=== PATIENT | female | born 1975 | race Caucasian/White ===

== ENCOUNTER 2017-03-26 07:44 | Emergency (ER) | payer SELFPAY ==
[~2017-03-26] VITALS: Ht 154.9 cm; Wt 65.0 kg
[~2017-03-26 07:44] MED LIST: DICY1TAB26 PO; LORTA5 PO; PRED20 PO; VENTAER INH; ZOFR4TAB3 SL
[2017-03-26 07:46] VITALS: BP 158/90; PULSE 96; RESP 14; TEMP 98.2; O2SAT 99
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
[2017-03-26] MEDS ORDERED: METH10CO3 PO (08:12)
[2017-03-26] MEDS ORDERED: METHOCARBAMOL 500 MG TAB PO ONE (08:15)
[2017-03-26] MEDS ORDERED: ACETAMINOPHEN 325 MG TAB PO ONE (08:15)
[2017-03-26] MEDS ORDERED: ROBA500T PO (08:16)
== END 2017-03-26 08:49 | disposition home or self-care (01) ==
LOC: NEPD 07:44
DX: S39.012A Strain of muscle, fascia and tendon of lower back, initial encounter (principal); S49.91XA Unspecified injury of right shoulder and upper arm, initial encounter; S00.81XA Abrasion of other part of head, initial encounter; V17.4XXA Pedal cycle driver injured in collision with fixed or stationary object in traffic accident, initial encounter; Y93.55 Activity, bike riding
CPT/HCPCS: 99283

== ENCOUNTER 2017-08-05 14:08 | Emergency (ER) | payer SELFPAY ==
[~2017-08-05] VITALS: Ht 154.9 cm; Wt 68.0 kg
[~2017-08-05 14:08] MED LIST changes: -DICY1TAB26 PO; -LORTA5 PO; +METH10CO3 PO; -PRED20 PO; +ROBA500T PO; -VENTAER INH; -ZOFR4TAB3 SL
[2017-08-05 14:30] VITALS: BP 131/85; PULSE 94; RESP 20; TEMP 99.2; O2SAT 98
[2017-08-05 17:01] LABS: BACTERIA, URINE MOD /hpf; BILIRUBIN, URINE NEG (NEG); BLOOD, URINE TRACE (NEG); GLUCOSE,URINE NEG (NEG); HYALINE CAST, URINE 2 /lpf (RARE); KETONE, URINE NEG (NEG); MUCUS URINE FEW /lpf (OCC); NITRITE,URINE NEG (NEG); PH, URINE 5.5 (5.0-8.5); SQUAMOUS EPITHELIAL CELL URINE 60 /hpf (0-5); TRICHOMONAS, URINE RARE; URINE COLOR YELLOW (YELLW/STRAW); URINE LEUKOCYTE ESTERASE LARGE (NEG); WHITE BLOOD CELL CLUMPS RARE
[2017-08-05] MEDS ORDERED: CEPH-460 PO (17:11)
[2017-08-05] MEDS ORDERED: IBUP1TAB7 PO (17:11)
[2017-08-05] MEDS ORDERED: LIDOCAINE HCL 1% 50 ML VIAL INFIL ONE (17:15)
[2017-08-05] MEDS ORDERED: IBUPROFEN 800 MG TAB PO ONE (17:15)
--- NOTE | 2017-08-05 17:15 | PD ---
HPI Chief Complaint: Abdominal Pain Time Seen by Provider: 17:04 Travel History International Travel<30 days: No Contact w/Intl Traveler<30days: No Traveled to known affect area: No History of Present Illness HPI 42-year-old female presents emergency department with 1 month history of lower abdominal discomfort and dysuria. Patient states she is gotten worsening bilateral flank pain in the last week. She denies nausea or vomiting. She has increased cramping and dysuria as well. No vaginal discharge noted. She has low-grade temperature of 99.3. She has allergies to ketorolac, pineapple, tramadol, and peanut butter. PFSH Past Medical History Asthma: No Blood Disorders: No Anxiety: Yes Heart Rhythm Problems: No Cancer: No Cardiovascular Problems: No High Cholesterol: No Chest Pain: Yes Congestive Heart Failure: No COPD: No Cerebrovascular Accident: No Diminished Hearing: No Endocrine: No Genitourinary: No Hypertension: Yes Immune Disorder: No Musculoskeletal: Yes (fell off ladder, injured left side in 2004) Neurologic: No Psychiatric: No Reproductive: No Respiratory: No Immunizations Current: Yes Myocardial Infarction: No Pneumonia: Yes Radiation Therapy: No Renal Failure: Yes Ulcer: No ?: Not LMP: 07/22/17 : 2 Para: 2 Miscarriage: 0 : 0 Tubal Ligation: Yes Past Surgical History Abdominal Surgery: Yes (C SECTION) Section: Yes Gynecologic Surgery: Yes ( X 1, TUBAL LIGATION ) Pacemaker: No Other Surgery: No Social History Alcohol Use: No Tobacco Use: No Substance Use: Yes (MARIJUANA use last month ) Allergies-Medications (Allergen,Severity, Reaction): Coded Allergies: ketorolac (Unverified Allergy, Severe, LIP SWELLING, 03/26/17) tramadol (Unverified Allergy, Severe, NAUSEA, 03/26/17) pineapple (Verified Allergy, Unknown, 03/26/17) Uncoded Allergies: PEANUTBUTTER (Allergy, Severe, 03/26/17) Reported Meds & Prescriptions Reported Meds & Active Scripts Active Ibuprofen 800 Mg Tab 800 Mg PO Q8H PRN Keflex (Cephalexin) 500 Mg Capsule 500 Mg PO Q8H Robaxin (Methocarbamol) 500 Mg Tab 500 Mg PO QID PRN Reported Methadone Intensol Liq (Methadone HCl) 10 Mg/Ml Conc 100 Mg PO DAILY Review of Systems Except as stated in HPI: all other systems reviewed are Neg General / Constitutional: Positive: Chills, No: Fever Eyes: No: Visual changes HENT: No: Headaches Cardiovascular: No: Chest Pain or Discomfort Respiratory: No: Shortness of Breath Gastrointestinal: No: Abdominal Pain Genitourinary: Positive: Urgency, Frequency, Dysuria, Pelvic Pain, Flank Pain, No: Nocturia, Hematuria, Decreased Urinary Output, Oliguria, Discharge, Vaginal Bleeding Musculoskeletal: No: Pain Skin: No Rash Neurologic: No: Weakness Psychiatric: No: Depression Endocrine: No: Polydipsia Hematologic/Lymphatic: No: Easy Bruising Physical Exam Narrative GENERAL: Patient appears in mild distress. SKIN: Warm and dry. Normal color. Normal turgor. No rash. HEAD: Atraumatic. Normocephalic. EYES: Pupils equal and round. No scleral icterus. No injection or drainage. ENT: No nasal bleeding or discharge. Mucous membranes pink and moist. NECK: Trachea midline. Supple nontender. CARDIOVASCULAR: Regular rate and rhythm. RESPIRATORY: No accessory muscle use. Clear to auscultation. Breath sounds equal bilaterally. GASTROINTESTINAL: Abdomen soft, mild to moderate diffuse suprapubic tenderness. Mild bilateral CVA tenderness. Abdomen is nondistended. Hepatic and splenic margins not palpable. MUSCULOSKELETAL: Extremities without clubbing, cyanosis, or edema. No obvious deformities. NEUROLOGICAL: Awake and alert. No obvious cranial nerve deficits. Motor grossly within normal limits. Five out of 5 muscle strength in the arms and legs. Normal speech. PSYCHIATRIC: Appropriate mood and affect; insight and judgment normal. Data Data Last Documented VS Vital Signs Date Time Temp Pulse Resp B/P (MAP) Pulse Ox O2 Delivery O2 Flow Rate FiO2 08/05/17 14:30 99.2 94 20 131/85 (100) 98 Orders Orders Urinalysis - C+S If Indicated (08/05/17 16:09) Ed Urine Pregnancytest Poc (08/05/17 16:09) Urine Culture (08/05/17 16:10) Ceftriaxone Inj (Rocephin Inj) (08/05/17 17:15) Ibuprofen (Motrin) (08/05/17 17:15) Lidocaine 1% Inj (50 Ml) (Xylocaine 1% I (08/05/17 17:15) Labs Laboratory Tests Test 4/29/18 16:10 Urine Color YELLOW Urine Turbidity HAZY Urine pH 5.5 Urine Specific Lindsay 1.023 Urine Protein TRACE mg/dL Urine Glucose (UA) NEG mg/dL Urine Ketones NEG mg/dL Urine Occult Blood TRACE Urine Nitrite NEG Urine Bilirubin NEG Urine Urobilinogen LESS THAN 2.0 MG/DL Urine Leukocyte Esterase LARGE Urine RBC 10 /hpf Urine WBC 61 /hpf Urine WBC Clumps RARE Urine Squamous Epithelial Cells 60 /hpf Urine Bacteria MOD /hpf Urine Hyaline Casts 2 /lpf Urine Mucus FEW /lpf Urine Trichomonas RARE Microscopic Urinalysis Comment CULTURE INDICATED MDM Medical Decision Making Medical Screen Exam Complete: Yes Emergency Medical Condition: Yes Differential Diagnosis Lower abdominal pain. Urinary tract infection. Pyelonephritis. Narrative Course Patient is given injection of Rocephin 1000 mg IM. Patient continued on Keflex 500 mg 3 times daily for 7 days. Patient is given ibuprofen 800 mg p.o. now. Patient given a prescription for ibuprofen 800 mg 3 times daily #30 Patient is to push fluids and follow-up with [facility] as needed. Diagnosis Primary Impression: Urinary tract infection Qualified Codes: N30.01 - Acute cystitis with hematuria Referrals: [facility] Patient Instructions: Dysuria (ED), General Instructions Additional Instructions: Patient is given injection of Rocephin 1000 mg IM. Patient continued on Keflex 500 mg 3 times daily for 7 days. Patient is given ibuprofen 800 mg p.o. now. Patient given a prescription for ibuprofen 800 mg 3 times daily #30 Patient is to push fluids and follow-up with [facility] as needed. Med/Other Pt SpecificInfo: Prescription(s) given Scripts Ibuprofen (Ibuprofen) 800 Mg Tab 800 MG PO Q8H Y for Pain/Inflammation, #30 TAB 0 Refills Prov: Colin Jackson MD 08/05/17 Cephalexin (Keflex) 500 Mg Capsule 500 MG PO Q8H for Infection, #21 CAP 0 Refills Prov: Colin Jackson MD 08/05/17 Disposition: 01 DISCHARGE HOME Condition: Stable Con Black Aug 05, 2017 17:15
== END 2017-08-05 17:51 | disposition home or self-care (01) ==
LOC: NEPD 14:08
DX: N39.0 Urinary tract infection, site not specified (principal); B96.1 Klebsiella pneumoniae [K. pneumoniae] as the cause of diseases classified elsewhere; F41.9 Anxiety disorder, unspecified; I12.9 Hypertensive chronic kidney disease with stage 1 through stage 4 chronic kidney disease, or unspecified chronic kidney disease; N18.9 Chronic kidney disease, unspecified
CPT/HCPCS: 81001; 84703; 87077; 87086; 87186; 96372; 99283; J0696

== ENCOUNTER 2017-08-11 10:11 | Emergency (ER) | payer SELFPAY ==
[~2017-08-11] VITALS: Ht 154.9 cm; Wt 68.0 kg
[~2017-08-11 10:11] MED LIST changes: +CEPH-460 PO; +IBUP1TAB7 PO
[2017-08-11 10:20] VITALS: BP 162/98; PULSE 114; RESP 18; TEMP 98.7; O2SAT 98
[2017-08-11] MEDS ORDERED: SODIUM CHLOR 0.9% 1000 ML INJ 1,000 ML IV SCH (10:35)
[2017-08-11] MEDS ORDERED: ONDANSETRON HCL 4 MG/2 ML VIAL IVP ONE (10:45)
--- NOTE | 2017-08-11 10:49 | PD ---
HPI Chief Complaint: Complaint Time Seen by Provider: 10:25 Travel History International Travel<30 days: No Contact w/Intl Traveler<30days: No Traveled to known affect area: No History of Present Illness HPI Examined in the presence of a female nurse at all times. This is a 42-year-old female who presents for evaluation of abdominal pain. Symptoms started 1 month ago. She reports an aching pain in her lower abdomen and lower back which is worse when walking. She reports increased urinary frequency but denies dysuria. She reports clear vaginal discharge. Sexually active with one long- term partner. She also reports that it appears like her rectum appears out of her anus when she has a bowel movement and she says that she has to "push it back in." This is been ongoing for 1 month. Denies rectal pain. She is also complaining of difficulty sleeping, grieving, secondary to the passing of her daughter in June. She denies any suicidal homicidal ideation however. She denies any hallucinations. Denies any illicit substance use. Denies fevers, chills, nausea, vomiting, diarrhea, constipation. She was seen here in August 05 when she was diagnosed with a urinary tract infection and prescribed Keflex with no improvement in her symptoms. No other complaints. PFSH Past Medical History Asthma: No Blood Disorders: No Anxiety: Yes Heart Rhythm Problems: No Cancer: No Cardiovascular Problems: No High Cholesterol: No Chest Pain: Yes Congestive Heart Failure: No COPD: No Cerebrovascular Accident: No Diminished Hearing: No Endocrine: No Genitourinary: No Hypertension: Yes Immune Disorder: No Musculoskeletal: Yes (fell off ladder, injured left side in 2004) Neurologic: No Psychiatric: No Reproductive: No Respiratory: No Immunizations Current: Yes Myocardial Infarction: No Pneumonia: Yes Radiation Therapy: No Renal Failure: Yes Ulcer: No Tetanus Vaccination: > 5 Years ?: Not LMP: JULY 2017 : 2 Para: 2 Miscarriage: 0 : 0 Tubal Ligation: Yes Past Surgical History Abdominal Surgery: Yes (C SECTION) Section: Yes Gynecologic Surgery: Yes ( X 1, TUBAL LIGATION ) Pacemaker: No Other Surgery: No Social History Alcohol Use: No Tobacco Use: No Substance Use: Yes Allergies-Medications (Allergen,Severity, Reaction): Coded Allergies: ketorolac (Unverified Allergy, Severe, LIP SWELLING, 08/11/17) tramadol (Unverified Allergy, Severe, NAUSEA, 08/11/17) pineapple (Verified Allergy, Unknown, 08/11/17) Uncoded Allergies: PEANUTBUTTER (Allergy, Severe, 03/26/17) Reported Meds & Prescriptions Reported Meds & Active Scripts Active Bactrim DS (Sulfamethoxazole-Trimethoprim) 800-160 Mg Tab 1 Tab PO BID Keflex (Cephalexin) 500 Mg Capsule 500 Mg PO Q8H Review of Systems Except as stated in HPI: all other systems reviewed are Neg Physical Exam Narrative GENERAL: Well-developed well-nourished female no acute distress SKIN: Warm and dry. HEAD: Atraumatic. Normocephalic. EYES: Pupils equal and round. No scleral icterus. No injection or drainage. ENT: No nasal bleeding or discharge. Mucous membranes pink and moist. NECK: Trachea midline. No JVD. CARDIOVASCULAR: Regular rate and rhythm. No murmur appreciated. RESPIRATORY: No accessory muscle use. Clear to auscultation. Breath sounds equal bilaterally. GASTROINTESTINAL: Abdomen soft, tender to palpation in the lower quadrants without guarding. No CVA tenderness. Rectal examination in the presence of a female nurse reveals no evidence of external hemorrhoid or obvious prolapsing rectum. Pelvic examination in the presence of a female nurse: White discharge noted in the vaginal canal. There is no cervical motion tenderness or adnexal tenderness. There is suprapubic tenderness. MUSCULOSKELETAL: No obvious deformities. No clubbing. No cyanosis. No edema. NEUROLOGICAL: Awake and alert. No obvious cranial nerve deficits. Motor grossly within normal limits. Normal speech. PSYCHIATRIC: Appropriate mood and affect; insight and judgment normal. Data Data Last Documented VS Vital Signs Date Time Temp Pulse Resp B/P (MAP) Pulse Ox O2 Delivery O2 Flow Rate FiO2 08/11/17 10:20 98.7 114 18 162/98 (119) 98 Orders Orders Complete Blood Count With Diff (08/11/17 10:35) Comprehensive Metabolic Panel (08/11/17 10:35) Lipase (08/11/17 10:35) Urinalysis - C+S If Indicated (08/11/17 10:35) Ct Abd/Pel W Iv Contrast(Rout) (08/11/17 10:35) Iv Access Insert/Monitor (08/11/17 10:35) Ondansetron Inj (Zofran Inj) (08/11/17 10:45) Sodium Chlor 0.9% 1000 Ml Inj (Ns 1000 M (08/11/17 10:35) Ed Urine Pregnancytest Poc (08/11/17 10:35) Gc And Chlamydia Pcr (08/11/17 10:35) Wet Prep Profile (08/11/17 10:35) Urine Culture (08/11/17 10:50) Iohexol 350 Inj (Omnipaque 350 Inj) (08/11/17 11:30) Azithromycin Powd Pack (Zithromax Powd P (08/11/17 12:30) Ceftriaxone Inj (Rocephin Inj) (08/11/17 12:30) Lidocaine 1% Inj (50 Ml) (Xylocaine 1% I (08/11/17 12:30) Metronidazole (Flagyl) (08/11/17 12:30) Ed Discharge Order (08/11/17 12:16) Labs Laboratory Tests Test 08/11/17 10:50 08/11/17 11:00 White Blood Count 7.4 TH/MM3 Red Blood Count 4.17 MIL/MM3 Hemoglobin 11.8 GM/DL Hematocrit 35.7 % Mean Corpuscular Volume 85.7 FL Mean Corpuscular Hemoglobin 28.3 PG Mean Corpuscular Hemoglobin Concent 33.1 % Red Cell Distribution Width 13.4 % Platelet Count 204 TH/MM3 Mean Platelet Volume 9.0 FL Neutrophils (%) (Auto) 51.8 % Lymphocytes (%) (Auto) 39.6 % Monocytes (%) (Auto) 6.3 % Eosinophils (%) (Auto) 1.7 % Basophils (%) (Auto) 0.6 % Neutrophils # (Auto) 3.8 TH/MM3 Lymphocytes # (Auto) 2.9 TH/MM3 Monocytes # (Auto) 0.5 TH/MM3 Eosinophils # (Auto) 0.1 TH/MM3 Basophils # (Auto) 0.0 TH/MM3 CBC Comment DIFF FINAL Differential Comment Urine Color LIGHT-YELLOW Urine Turbidity HAZY Urine pH 7.0 Urine Specific White 1.019 Urine Protein NEG mg/dL Urine Glucose (UA) NEG mg/dL Urine Ketones NEG mg/dL Urine Occult Blood TRACE Urine Nitrite NEG Urine Bilirubin NEG Urine Urobilinogen LESS THAN 2.0 MG/DL Urine Leukocyte Esterase LARGE Urine RBC 4 /hpf Urine WBC 18 /hpf Urine Squamous Epithelial Cells 33 /hpf Urine Bacteria FEW /hpf Urine Mucus FEW /lpf Urine Trichomonas PRESENT Microscopic Urinalysis Comment CULTURE INDICATED Blood Urea Nitrogen 16 MG/DL Creatinine 1.02 MG/DL Random Glucose 150 MG/DL Total Protein 8.6 GM/DL Albumin 3.5 GM/DL Calcium Level 8.6 MG/DL Alkaline Phosphatase 59 U/L Aspartate Amino Transf (AST/SGOT) 31 U/L Alanine Aminotransferase (ALT/SGPT) 44 U/L Total Bilirubin 0.9 MG/DL Sodium Level 141 MEQ/L Potassium Level 4.0 MEQ/L Chloride Level 107 MEQ/L Carbon Dioxide Level 26.1 MEQ/L Anion Gap 8 MEQ/L Estimat Glomerular Filtration Rate 59 ML/MIN Lipase 195 U/L Clue Cells (Wet Prep) NONE SEEN Vaginal Trichomonas (Wet Prep) NONE SEEN Vaginal Yeast (Wet Prep) NONE SEEN MDM Medical Decision Making Medical Screen Exam Complete: Yes Emergency Medical Condition: Yes Medical Record Reviewed: Yes Differential Diagnosis Cystitis, pyelonephritis, pelvic inflammatory disease, cervicitis, vaginosis, rectal prolapse, internal hemorrhoids Narrative Course Plan is for lab work, pelvic examination, CT abdomen and pelvis, urinalysis. The patient will be given IV fluids and Zofran. CBC, CMP essentially unremarkable. Urinalysis reveals numerous WBCs, some contamination with 33 squamous epithelial cells. Trichomonas is present in her urine sample although not present on wet prep and thus, pending GC results, she will be treated empirically for chlamydia, gonorrhea with azithromycin and Rocephin, trichomonas treated with Flagyl. CT abdomen and pelvis reveals no acute abnormality, there is a 12 mm cystic lesion in the right aspect of the upper vagina likely representing a duct cyst. At this point in time pending urine culture results plan is to discharge her with Bactrim. She will be given an outpatient resource packet in regards to her grieving. Diagnosis Primary Impression: Trichomonas vaginitis Additional Impression: UTI (urinary tract infection) Additional Instructions: Medication as prescribed. Follow-up with primary care physician. Return for any acutely new or worsening symptoms. Med/Other Pt SpecificInfo: Prescription(s) given Scripts Sulfamethoxazole-Trimethoprim (Bactrim DS) 800-160 Mg Tab 1 TAB PO BID for Infection, #14 TAB 0 Refills Prov: Chavo Guillory MD 08/11/17 Disposition: 01 DISCHARGE HOME Condition: Stable Bony Tello August 11, 2017 10:49
[2017-08-11 11:06] LABS: AUTOMATED NEUTROPHIL # 3.8 TH/MM3 (1.8-7.7); BASOPHIL % 0.6 % (0.0-2.0); EOSINOPHIL # 0.1 TH/MM3 (0-0.4); EOSINOPHIL % 1.7 % (0.0-4.0); HEMATOCRIT 35.7 % (35.0-46.0); HEMOGLOBIN 11.8 GM/DL (11.6-15.3); LYMPH % 39.6 % (9.0-44.0); LYMPHOCYTE # 2.9 TH/MM3 (1.0-4.8); MEAN CELL VOLUME 85.7 FL (80.0-100.0); MEAN CORPUSCULAR HEMOGLOBIN 28.3 PG (27.0-34.0); MEAN CORPUSCULAR HGB CONC 33.1 % (32.0-36.0); MONO % 6.3 % (0.0-8.0); MONOCYTE # 0.5 TH/MM3 (0-0.9); NEUT % 51.8 % (16.0-70.0); PLATELET COUNT 204 TH/MM3 (150-450); RED BLOOD COUNT 4.17 MIL/MM3 (4.00-5.30); RED CELL DISTRIBUTION WIDTH 13.4 % (11.6-17.2); WHITE BLOOD COUNT 7.4 TH/MM3 (4.0-11.0)
[2017-08-11] MEDS ORDERED: IOHEXOL 350 MG/ML 10 ML VIAL (for RAD DIAG) IVCONTRAST ONE (11:30)
[2017-08-11 11:33] LABS: ALBUMIN 3.5 GM/DL (3.4-5.0); ALT (GPT) 44 U/L (10-53); AST (GOT) 31 U/L (15-37); BICARBONATE 26.1 MEQ/L (21.0-32.0); BLOOD UREA NITROGEN 16 MG/DL (7-18); CALCIUM 8.6 MG/DL (8.5-10.1); CHLORIDE 107 MEQ/L (98-107); CREATININE 1.02 MG/DL (0.50-1.00); GLOMERULAR FILTRATION RATE 59 ML/MIN (>89); GLUCOSE,RANDOM 150 MG/DL (74-106); SODIUM (NA) 141 MEQ/L (136-145)
[2017-08-11 11:36] LABS: ALKALINE PHOSPHATASE 59 U/L (45-117); TOTAL BILIRUBIN ADULT 0.9 MG/DL (0.2-1.0); TOTAL PROTEIN 8.6 GM/DL (6.4-8.2)
[2017-08-11 11:37] LABS: BACTERIA, URINE FEW /hpf; BILIRUBIN, URINE NEG (NEG); BLOOD, URINE TRACE (NEG); GLUCOSE,URINE NEG (NEG); KETONE, URINE NEG (NEG); MUCUS URINE FEW /lpf (OCC); NITRITE,URINE NEG (NEG); SQUAMOUS EPITHELIAL CELL URINE 33 /hpf (0-5); URINE COLOR LIGHT-YELLOW (YELLW/STRAW); URINE LEUKOCYTE ESTERASE LARGE (NEG)
[2017-08-11 11:38] LABS: TRICHOMONAS, URINE PRESENT
--- NOTE | 2017-08-11 12:07 | RADRPT ---
EXAM DATE/TIME: 08/11/2017 11:46 [place] COMPARISON: CT ABDOMEN & PELVIS W/O CONTRAST, December 22, 2015, 19:59. INDICATIONS : Lower abdominal pain. IV CONTRAST: 94 cc Omnipaque 350 (iohexol) IV ORAL CONTRAST: No oral contrast ingested. RADIATION DOSE: 6.75 CTDIvol (mGy) MEDICAL HISTORY : Hypertension. SURGICAL HISTORY : Tubal ligation. ENCOUNTER: Initial ACUITY: 1 day PAIN SCALE: 7/10 LOCATION: Bilateral lower quadrant TECHNIQUE: Volumetric scanning of the abdomen and pelvis was performed. Using automated exposure control and ad justment of the mA and/or kV according to patient size, radiation dose was kept as low as reasonably achievable to obtain optimal diagnostic quality images. DICOM format image data is available electro nically for review and comparison. FINDINGS: There is respiratory motion artifact. LOWER LUNGS: The visualized lower lungs are clear. LIVER: Homogeneous density without lesion. There is no dilation of the biliary tree. No calcified gallston es. SPLEEN: Normal size without lesion. PANCREAS: Within normal limits. KIDNEYS: Normal in size and shape. There is no mass, stone or hydronephrosis. 15 mm low-density lesion in the lower pole left kidney is stable. The previously demonstrated density measurements consistent with a simple cyst. ADRENAL GLANDS: Within normal limits. VASCULAR: There is no aortic aneurysm. There is minimal atherosclerotic disease in the infrarenal aorta. BOWEL/MESENTERY: The stomach, small bowel, and colon demonstrate no acute abnormality. There is no free intraperitone al air or fluid. Terminal ileum is normal. ABDOMINAL WALL: Within normal limits. RETROPERITONEUM: There is no lymphadenopathy. BLADDER: No wall thickening or mass. REPRODUCTIVE: There is a 12 mm cystic lesion along the right lateral aspect of the upper vagina. Uterus and adnexal regions demonstrate no abnormality. There is a cyst within the left ovary measuring 15 mm. INGUINAL: There is no lymphadenopathy or hernia. MUSCULOSKELETAL: No acute abnormality. CONCLUSION: 1. No acute abnormality is identified to explain the clinical symptoms. Examination quality degraded by respiratory motion artifact. 2. There is a 12 mm cystic lesion in the right aspect of the upper vagina, likely representing a Gart ner duct cyst. Gregor Senior MD on August 11, 2017 at 11:58 Board Certified Radiologist. This report was verified electronically.
[2017-08-11] MEDS ORDERED: MACR100C2 PO (12:17)
[2017-08-11] MEDS ORDERED: BACT800T5 PO (12:23)
[2017-08-11] MEDS ORDERED: ACETAMINOPHEN 325 MG TAB PO ONE (12:30)
[2017-08-11] MEDS ORDERED: cefTRIAXone 250 MG VIAL IM ONE (12:30)
[2017-08-11] MEDS ORDERED: AZITHROMYCIN PWD FOR SUSP 1 GM PACKET PO ONE (12:30)
[2017-08-11] MEDS ORDERED: LIDOCAINE HCL 1% 50 ML VIAL IM ONE (12:30)
[2017-08-11] MEDS ORDERED: metroNIDAZOLE 500 MG TAB PO ONE (12:30)
[2017-08-11] MEDS ORDERED: IBUPROFEN 800 MG TAB PO ONE (12:45)
== END 2017-08-11 13:06 | disposition home or self-care (01) ==
LOC: NEPD 10:11
DX: A59.01 Trichomonal vulvovaginitis (principal); N39.0 Urinary tract infection, site not specified; F41.9 Anxiety disorder, unspecified; I10 Essential (primary) hypertension
CPT/HCPCS: 74177; 80053; 81001; 83690; 84703; 85025; 87086; 87210; 87491; 87591; 96361; 96372; 96374; 99284; J0696; J2405; J7030; Q9967

== ENCOUNTER 2017-09-16 11:19 | Observation (INO) | payer SELFPAY ==
[~2017-09-16] VITALS: Ht 154.9 cm; Wt 69.0 kg
[~2017-09-16 11:19] MED LIST changes: +BACT800T5 PO; -IBUP1TAB7 PO; -METH10CO3 PO; -ROBA500T PO
[2017-09-16 11:22] VITALS: BP 157/94; PULSE 99; RESP 18; TEMP 98.6; O2SAT 99
[2017-09-16] MEDS ORDERED: SODIUM CHLORIDE 0.9% FLUSH 10 ML FLUSH IVF PRN (12:30)
--- NOTE | 2017-09-16 12:34 | PD ---
HPI Chief Complaint: Skin Problem Time Seen by Provider: 12:20 Travel History International Travel<30 days: No Contact w/Intl Traveler<30days: No Traveled to known affect area: No History of Present Illness HPI Patient comes in complaining of increased lump size on the left breast over the last 2 days. Patient states that it has gotten larger and it has become more painful, sharp, 7-8 out of 10. Touching it makes it worse and more painful. No alleviating factors. Patient denies any associated factors such as fever, redness to the breast, rash, chest pain, shortness of breath, nausea, vomiting, diarrhea cough, sore throat or runny nose. Patient also denies having any weight loss over the last few months. And the patient states that she is only had this lump for the last 2 days only.... Patient states that she did not pay too much mind to it because usually when she gets her menses both of her breasts increase in size and they get tender but after her menses was over her left breast still stayed the same size while her right breast went down in size and pain. States allergy to peanut butter, pineapple, Toradol or tramadol really unsure about which medications Patient denies any significant past surgical history, or medical history Patient denies any medications PFSH Past Medical History Asthma: No Blood Disorders: No Anxiety: Yes Heart Rhythm Problems: No Cancer: No Cardiovascular Problems: No High Cholesterol: No Chest Pain: Yes Congestive Heart Failure: No COPD: No Cerebrovascular Accident: No Diminished Hearing: No Endocrine: No Genitourinary: No Hypertension: Yes Immune Disorder: No Musculoskeletal: Yes (fell off ladder, injured left side in 2004) Neurologic: No Psychiatric: No Reproductive: No Respiratory: No Immunizations Current: Yes Myocardial Infarction: No Pneumonia: Yes Radiation Therapy: No Renal Failure: Yes Ulcer: No : 2 Para: 2 Miscarriage: 0 : 0 Tubal Ligation: Yes Past Surgical History Abdominal Surgery: Yes (C SECTION) Section: Yes Gynecologic Surgery: Yes ( X 1, TUBAL LIGATION ) Pacemaker: No Other Surgery: No Social History Alcohol Use: No Tobacco Use: No Substance Use: Yes Allergies-Medications (Allergen,Severity, Reaction): Coded Allergies: ketorolac (Unverified Allergy, Severe, LIP SWELLING, 08/11/17) tramadol (Unverified Allergy, Severe, NAUSEA, 08/11/17) pineapple (Verified Allergy, Unknown, 08/11/17) Uncoded Allergies: PEANUTBUTTER (Allergy, Severe, 03/26/17) Reported Meds & Prescriptions Reported Meds & Active Scripts Active Review of Systems General / Constitutional: No: Fever Eyes: No: Visual changes HENT: No: Headaches Cardiovascular: No: Chest Pain or Discomfort Respiratory: No: Shortness of Breath Gastrointestinal: No: Abdominal Pain Genitourinary: No: Dysuria Musculoskeletal: No: Pain Skin: Positive Lumps Neurologic: No: Weakness Psychiatric: No: Depression Endocrine: No: Polydipsia Hematologic/Lymphatic: No: Easy Bruising Physical Exam Narrative GENERAL: SKIN: Warm and dry. HEAD: Atraumatic. Normocephalic. EYES: Pupils equal and round. No scleral icterus. No injection or drainage. ENT: No nasal bleeding or discharge. Mucous membranes pink and moist. NECK: Trachea midline. No JVD. CARDIOVASCULAR: Regular rate and rhythm. RESPIRATORY: No accessory muscle use. Clear to auscultation. Breath sounds equal bilaterally. GASTROINTESTINAL: Abdomen soft, non-tender, nondistended MUSCULOSKELETAL: Extremities without clubbing, cyanosis, or edema. No obvious deformities. Breast exam with RN in room reveals a 10 x 5 cm firm mid left breast mass without overlying cellulitis, no warmth, no streaking, no peau d' orange skin changes, there are other enlarged lumps noted as well throughout lateral breast tissue approximately 2 cm in diameter.. There is also axillary lymphadenopathy noted NEUROLOGICAL: Awake and alert. No obvious cranial nerve deficits. Motor grossly within normal limits. Five out of 5 muscle strength in the arms and legs. Normal speech. PSYCHIATRIC: Appropriate mood and affect; insight and judgment normal. Data Data Last Documented VS Orders Orders Complete Blood Count With Diff (09/16/17 12:21) Comprehensive Metabolic Panel (09/16/17 12:21) Prothrombin Time / Inr (Pt) (09/16/17 12:21) Act Partial Throm Time (Ptt) (09/16/17 12:21) Ecg Monitoring (09/16/17 12:21) Iv Access Insert/Monitor (09/16/17 12:21) Oximetry (09/16/17 12:21) Sodium Chloride 0.9% Flush (Ns Flush) (09/16/17 12:30) Ct Thorax/ Chest W Iv Contrast (09/16/17 12:21) Iohexol 350 Inj (Omnipaque 350 Inj) (09/16/17 14:30) Ampicillin-Sulbactam Inj (Unasyn Inj) (09/16/17 15:15) Clindamycin Inj (Cleocin Inj) (09/16/17 15:15) Clindamycin 900 Mg/Ns Premix (Cleocin 90 (09/16/17 15:45) Admit Order (Ed Use Only) (09/16/17 15:45) Labs Laboratory Tests Test 09/16/17 12:56 White Blood Count 6.7 TH/MM3 Red Blood Count 3.94 MIL/MM3 Hemoglobin 10.9 GM/DL Hematocrit 33.1 % Mean Corpuscular Volume 83.8 FL Mean Corpuscular Hemoglobin 27.6 PG Mean Corpuscular Hemoglobin Concent 33.0 % Red Cell Distribution Width 14.0 % Platelet Count 208 TH/MM3 Mean Platelet Volume 9.6 FL Neutrophils (%) (Auto) 69.6 % Lymphocytes (%) (Auto) 24.0 % Monocytes (%) (Auto) 4.4 % Eosinophils (%) (Auto) 1.4 % Basophils (%) (Auto) 0.6 % Neutrophils # (Auto) 4.7 TH/MM3 Lymphocytes # (Auto) 1.6 TH/MM3 Monocytes # (Auto) 0.3 TH/MM3 Eosinophils # (Auto) 0.1 TH/MM3 Basophils # (Auto) 0.0 TH/MM3 CBC Comment DIFF FINAL Differential Comment Prothrombin Time 9.9 SEC Prothromb Time International Ratio 1.0 RATIO Activated Partial Thromboplast Time 24.3 SEC Blood Urea Nitrogen 11 MG/DL Creatinine 1.05 MG/DL Random Glucose 118 MG/DL Total Protein 9.3 GM/DL Albumin 3.3 GM/DL Calcium Level 8.8 MG/DL Alkaline Phosphatase 68 U/L Aspartate Amino Transf (AST/SGOT) 51 U/L Alanine Aminotransferase (ALT/SGPT) 46 U/L Total Bilirubin 0.7 MG/DL Sodium Level 138 MEQ/L Potassium Level 4.4 MEQ/L Chloride Level 103 MEQ/L Carbon Dioxide Level 27.8 MEQ/L Anion Gap 7 MEQ/L Estimat Glomerular Filtration Rate 57 ML/MIN [facility] Medical Decision Making Medical Screen Exam Complete: Yes Emergency Medical Condition: Yes Medical Record Reviewed: Yes Differential Diagnosis Left breast mass versus left breast abscess versus left breast cellulitis Narrative Course CBC shows no leukocytosis, mild anemia of 10.9/33.1, no left shift, normal platelet count Coagulation profile is within normal limits Electrolytes are all within normal limits with the exception of his GFR decreased at 57, mildly elevated AST of 51 but it is not significant enough and neither is the bilirubin nor the alkaline phosphatase elevated to be suggestive of acute liver disease. CT of the chest with IV contrast read by radiologist as left-sided breast swelling and perceive edema or inflammatory change within the soft tissues differential diagnosis includes mastitis but cannot exclude inflammatory breast carcinoma. Left breast MRI is recommended. Axillary lymph nodes noted no lung consolidation or effusion noted My concern continues to be that of breast malignancy, particularly since the patient has no left shift has no leukocytosis and due to the sheer size of the breast lump which is essentially the size of a computer mouse.... I believe it prudent to have the patient admitted to provide IV antibiotics and performed the left breast MRI and any other additional testing to ensure that there is not any breast CA rather than cellulitis causing this lump Diagnosis Primary Impression: Large mass of left breast Additional Impression: Possible mastitis versus malignancy Admitting Information Admitting Physician Requests: Observation Scripts Amoxicillin-Clavulanate (Amoxicillin-Clavulanate) 875-125 mg Tab 875 MG PO Q12HR for 6 Days, #12 TAB not for use in CrCl <30 mL/minute Prov: Beni Aguilar MD R2 09/17/17 Disposition: 01 DISCHARGE HOME Condition: Stable Joseph Oneal MD Sep 16, 2017 12:34
[2017-09-16 13:18] LABS: AUTOMATED NEUTROPHIL # 4.7 TH/MM3 (1.8-7.7); BASOPHIL % 0.6 % (0.0-2.0); EOSINOPHIL # 0.1 TH/MM3 (0-0.4); EOSINOPHIL % 1.4 % (0.0-4.0); HEMATOCRIT 33.1 % (35.0-46.0); HEMOGLOBIN 10.9 GM/DL (11.6-15.3); LYMPHOCYTE # 1.6 TH/MM3 (1.0-4.8); MEAN CELL VOLUME 83.8 FL (80.0-100.0); MEAN CORPUSCULAR HEMOGLOBIN 27.6 PG (27.0-34.0); MEAN PLATELET VOLUME 9.6 FL (7.0-11.0); MONO % 4.4 % (0.0-8.0); MONOCYTE # 0.3 TH/MM3 (0-0.9); NEUT % 69.6 % (16.0-70.0); PLATELET COUNT 208 TH/MM3 (150-450); RED BLOOD COUNT 3.94 MIL/MM3 (4.00-5.30); WHITE BLOOD COUNT 6.7 TH/MM3 (4.0-11.0)
[2017-09-16 13:34] LABS: PROTHROMBIN TIME - PATIENT 9.9 SEC (9.8-11.6)
[2017-09-16 13:40] LABS: ALKALINE PHOSPHATASE 68 U/L (45-117); ALT (GPT) 46 U/L (10-53); TOTAL BILIRUBIN ADULT 0.7 MG/DL (0.2-1.0); TOTAL PROTEIN 9.3 GM/DL (6.4-8.2)
[2017-09-16 13:43] LABS: ALBUMIN 3.3 GM/DL (3.4-5.0); AST (GOT) 51 U/L (15-37); BICARBONATE 27.8 MEQ/L (21.0-32.0); BLOOD UREA NITROGEN 11 MG/DL (7-18); CALCIUM 8.8 MG/DL (8.5-10.1); CHLORIDE 103 MEQ/L (98-107); CREATININE 1.05 MG/DL (0.50-1.00); GLOMERULAR FILTRATION RATE 57 ML/MIN (>89); GLUCOSE,RANDOM 118 MG/DL (74-106); SODIUM (NA) 138 MEQ/L (136-145)
[2017-09-16] MEDS ORDERED: IOHEXOL 350 MG/ML 10 ML VIAL (for RAD DIAG) IVCONTRAST ONE (14:30)
--- NOTE | 2017-09-16 14:43 | RADRPT ---
EXAM DATE: 09/16/2017 2:36 PM EDT AGE/SEX: 42 years / Female INDICATIONS: Left breast swelling for two days. CLINICAL DATA: This is the patient's initial encounter. Patient reports that signs and symptoms have been present for 2 days and indicates a pain score of 7/10. MEDICAL/SURGICAL HISTORY: Hypertension. Tubal ligation. RADIATION DOSE: 5.88 CTDI (mGy) COMPARISON: No prior exams available for comparison. TECHNIQUE: Multiple contiguous axial images were obtained through the chest during bolus infusion of 60 ml Omnipaque 350 (iohexol) nonionic water-soluble contrast as a single exam dose. Images were obtained in suspended respiration using multiple row detector helical technique. Using automated exp osure control and adjustment of the mA and/or kV according to patient size, radiation dose was kept a s low as reasonably achievable to obtain optimal diagnostic quality images. FINDINGS: There is stranding of the fact in the left breast swelling which is nonspecific but could represent a mastitis. Borderline to mildly enlarged left axillary lymph nodes are present. Lungs are clear. No pleural or pericardial effusion. No hilar or mediastinal adenopathy. No acute findings in the upper abdomen. No acute bony abnormality. CONCLUSION: 1. Left sided breast swelling and presumed edema or inflammatory change within the soft tissues. Dif ferential diagnosis includes mastitis. Cannot exclude inflammatory breast carcinoma. If clinical find ings are indeterminate would recommend further evaluation with left breast MRI. Borderline and mildly enlarged left axillary lymph nodes. 2. No lung consolidation or effusion. Electronically signed by: Angelo Srivastava MD 09/16/2017 2:41 PM EDT
[2017-09-16] MEDS ORDERED: CLINDAMYCIN INJ 900 MG in SODIUM CHLORIDE 0.9% INJ 100 ML IV ONE (15:15)
[2017-09-16] MEDS ORDERED: AMPICILLIN-SULBACTAM INJ 3 GM in SODIUM CHLORIDE 0.9% INJ 100 ML IV ONE (15:15)
[2017-09-16] MEDS ORDERED: MORPHINE SULFATE 2 MG/ML SYRINGE IV PUSH ONE (15:15)
[2017-09-16] MEDS ORDERED: CLINDAMYCIN 900 MG/NS PREMIX 50 ML IV ONE (15:45)
--- NOTE | 2017-09-16 15:56 | HHI.HP ---
HPI Service Family Medicine Primary Care Physician No Primary Care Physician Admission Diagnosis LEFT BREAST MASS VS MASTITIS Diagnoses: International Travel<30 Days: No Contact w/Intl Traveler<30days: No Known Affected Area: No History of Present Illness 42 y/o F presenting w/painful left breast. Started 2 days ago and noticed her breast was "lucas." Has decreased in size. Pain has decreased as well, is currently an 8/10. Worse w/touch. Denies any skin surface changes, breast discharge, rash, no change w/menses, no unintentional weight loss. Has very mild tenderness in her axillary region. Patient states left breast has an "engorged" feeling. Patient is currently on menses, no recent changes in menstruation. Endorses chronic mid-back pain as well. Denies fevers, fatigue, recent illness. No hx of cancer, no recent IV drug use. Has no PCP. Review of Systems Constitutional: DENIES: Fever, Weight loss Eyes: DENIES: Blurred vision, Diplopia Ears, nose, mouth, throat: DENIES: Hearing loss Respiratory: DENIES: Cough, Shortness of breath Cardiovascular: DENIES: Chest pain, Palpitations Gastrointestinal: DENIES: Abdominal pain, Diarrhea Genitourinary: DENIES: Abnormal vaginal bleeding, Urinary frequency Musculoskeletal: DENIES: Joint pain Integumentary: DENIES: Abnormal pigmentation, Rash Neurologic: COMPLAINS OF: Headache Past Family Social History Past Medical History None reported per patient Per hospital records, hx of Hep C + in 2011 Past Surgical History None Allergies: Coded Allergies: ketorolac (Unverified Allergy, Severe, LIP SWELLING, 08/11/17) tramadol (Unverified Allergy, Severe, NAUSEA, 08/11/17) pineapple (Verified Allergy, Unknown, 08/11/17) Uncoded Allergies: PEANUTBUTTER (Allergy, Severe, 03/26/17) Family History Mom: none Dad: none Hx of cancer in Grandmother and grandfather, type unknown. Social History No drinking or current drug use. No smoking Last drug use was cocaine weeks ago. 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 Physical Exam Vital Signs Vital Signs Date Time Temp Pulse Resp B/P (MAP) Pulse Ox O2 Delivery O2 Flow Rate FiO2 09/16/17 12:22 94 20 09/16/17 11:22 98.6 99 18 157/94 (115) 99 Physical Exam GENERAL: No acute distress but appears anxious. SKIN: Cool and dry. Left breast is more enlarged than the right. Mild redness of the skin below and along the lateral edge of the breast toward the axillar. 7x4 cm area of induration felt toward the lateral edge at 1 o'clock. A visible lump is located at 3 o'clock. No drainage from the nipple. Possible 1-2 small enlarged lymph nodes in the axilla. HEAD: Atraumatic. Normocephalic. EYES: Pupils equal round and reactive. Extraocular motions intact. ENT: Airway patent. NECK: Trachea midline. CARDIOVASCULAR: Regular rate and rhythm without murmurs, gallops, or rubs. RESPIRATORY: Clear to auscultation. Breath sounds equal bilaterally. No wheezes , rales, or rhonchi. MUSCULOSKELETAL: Extremities without clubbing, cyanosis, or edema. Laboratory Laboratory Tests Test 09/16/17 12:56 White Blood Count 6.7 Red Blood Count 3.94 Hemoglobin 10.9 Hematocrit 33.1 Mean Corpuscular Volume 83.8 Mean Corpuscular Hemoglobin 27.6 Mean Corpuscular Hemoglobin Concent 33.0 Red Cell Distribution Width 14.0 Platelet Count 208 Mean Platelet Volume 9.6 Neutrophils (%) (Auto) 69.6 Lymphocytes (%) (Auto) 24.0 Monocytes (%) (Auto) 4.4 Eosinophils (%) (Auto) 1.4 Basophils (%) (Auto) 0.6 Neutrophils # (Auto) 4.7 Lymphocytes # (Auto) 1.6 Monocytes # (Auto) 0.3 Eosinophils # (Auto) 0.1 Basophils # (Auto) 0.0 CBC Comment DIFF FINAL Differential Comment Prothrombin Time 9.9 Prothromb Time International Ratio 1.0 Activated Partial Thromboplast Time 24.3 Blood Urea Nitrogen 11 Creatinine 1.05 Random Glucose 118 Total Protein 9.3 Albumin 3.3 Calcium Level 8.8 Alkaline Phosphatase 68 Aspartate Amino Transf (AST/SGOT) 51 Alanine Aminotransferase (ALT/SGPT) 46 Total Bilirubin 0.7 Sodium Level 138 Potassium Level 4.4 Chloride Level 103 Carbon Dioxide Level 27.8 Anion Gap 7 Estimat Glomerular Filtration Rate 57 Result Diagram: 09/16/17 1256 09/16/17 1256 Imaging Last Impressions Chest CT 09/16/17 1221 Signed Impressions: CONCLUSION: 1. Left sided breast swelling and presumed edema or inflammatory change within the soft tissues. Differential diagnosis includes mastitis. Cannot exclude inf lammatory breast carcinoma. If clinical findings are indeterminate would recomm end further evaluation with left breast MRI. Borderline and mildly enlarged lef t axillary lymph nodes. 2. No lung consolidation or effusion. Breast Ultrasound 09/16/17 0000 Signed Impressions: CONCLUSION: 1. No discrete solid or cystic mass identified sonographically. Based on chest CT findings patient should be followed with MRI as an outpatient. Course Clindamycin 1 gm total, Unasyn 3 gm, and morphine 6 mg total given in the ED. Caprini VTE Risk Assessment Caprini VTE Risk Assessment: No/Low Risk (score <= 1) Caprini Risk Assessment Model \\ Assessment and Plan Assessment and Plan 42 y/o F w/no significant PMH admitted to obs for left breast pain. Differential : malignancy v mastitis v abscess. Order breast ultrasound to better characterize. Will start Augmentin if no mass/abscess appreciated on exam. Patient will need to pursue mammogram and bx to r/o rare inflammatory carcinoma , especially if no response to treatment is noted. Code Status DNR Discussed Condition With Dr. Aguilar Problem List: (1) Breast pain, left ICD Codes: N64.4 - Mastodynia Plan: Order breast US. Based on results, start Augmentin 875 mg Q12H for a course of 5 -7 days if rapid response. Tylenol PRN for pain. Avoid opiates due to drug abuse hx. Consider Motrin w/ close monitoring of LFTs. Will require outpatient follow up imaging (mammo) and bx If drainage from nipple, plan to cx (2) Anemia ICD Codes: D64.9 - Anemia, unspecified Status: Acute Plan: Normocytic AM CBC (3) FEN Plan: Fluids: PO Electrolytes: none Nutrition: Reg diet DVT prophy: not indicated Problem Qualifiers (1) Anemia: Qualified Codes: D64.9 - Anemia, unspecified Reyna Wang MD R1 Sep 16, 2017 15:56
[2017-09-16 15:58] VITALS: BP 117/76; PULSE 103; RESP 19; O2SAT 97
[2017-09-16] MEDS ORDERED: MORPHINE SULFATE 4 MG/ML INJ IV PUSH ONE ×2 (16:00→23:00)
[2017-09-16] MEDS ORDERED: NALOXONE HCL 0.4 MG/ML AMP IV PUSH PRN (16:30)
[2017-09-16] MEDS ORDERED: LACTULOSE SYRUP 20 GM/30 ML CUP PO PRN (16:30)
[2017-09-16] MEDS ORDERED: ZOLPIDEM TARTRATE 5 MG TAB PO PRN (16:30)
[2017-09-16] MEDS ORDERED: MAGNESIUM HYDROXIDE SUSP 30 ML CUP PO PRN (16:30)
[2017-09-16] MEDS ORDERED: SODIUM CHLORIDE 0.9% FLUSH 10 ML FLUSH IV FLUSH PRN (16:30)
[2017-09-16] MEDS ORDERED: BISACODYL 10 MG SUPP RECTAL PRN (16:30)
[2017-09-16] MEDS ORDERED: SENNOSIDES 8.6 MG TAB PO PRN (16:30)
[2017-09-16] MEDS ORDERED: ACETAMINOPHEN 325 MG TAB PO PRN (16:30)
--- NOTE | 2017-09-16 17:01 | RADRPT ---
EXAM DATE: 09/16/2017 4:55 PM EDT AGE/SEX: 42 years / Female INDICATIONS: Mass. CLINICAL DATA: This is the patient's initial encounter. Patient reports that signs and symptoms have been present for 2 weeks and indicates a pain score of 6/10. MEDICAL/SURGICAL HISTORY: Hypertension. Pneumonia. Anxiety. Claustrophobia. Renal failure. Sami arean section. Tubal ligation. Left clavicle surgery. COMPARISON: [facility] – [place], [place], CT THORAX W CONTRAST, 09/16/2017. . TECHNIQUE: Real-time ultrasound examination was performed using a high-frequency transducer. Conven tional and compound scanning techniques were used. FINDINGS: Accident ultrasound of the left breast reveals no discrete solid or cystic mass. Thyroid glandular ti ssue is prominent. Reportedly there is palpable abnormality present. Given the findings on CT breast would be better evaluated with MRI as an outpatient. CONCLUSION: 1. No discrete solid or cystic mass identified sonographically. Based on chest CT findings patient s hould be followed with MRI as an outpatient. Electronically signed by: Angelo Srivastava MD 09/16/2017 5:00 PM EDT
[2017-09-16 19:41] VITALS: BP 131/81; PULSE 94; RESP 18; TEMP 98.7; O2SAT 97
[2017-09-16] MEDS: DOCUSATE SODIUM 50 MG/SENNA 8.6 MG TAB PO SCH (20:11)
[2017-09-16] MEDS: SODIUM CHLORIDE 0.9% FLUSH 10 ML FLUSH IV FLUSH SCH (20:12)
[2017-09-16] MEDS: IBUPROFEN 800 MG TAB PO SCH (22:13)
[2017-09-16 23:06] VITALS: BP 122/76; PULSE 81; RESP 18; TEMP 98.7; O2SAT 97
[2017-09-17 04:06] VITALS: BP 131/72; PULSE 74; RESP 18; TEMP 97.7; O2SAT 97
[2017-09-17] MEDS: IBUPROFEN 800 MG TAB PO SCH (06:23)
[2017-09-17] MEDS: AMOXICILLIN/CLAVULANATE K 875 MG TAB PO SCH ×2 (06:23→09:40)
[2017-09-17 07:37] LABS: BASOPHIL % 0.4 % (0.0-2.0); EOSINOPHIL # 0.2 TH/MM3 (0-0.4); EOSINOPHIL % 2.9 % (0.0-4.0); HEMATOCRIT 30.2 % (35.0-46.0); LYMPH % 40.4 % (9.0-44.0); LYMPHOCYTE # 2.6 TH/MM3 (1.0-4.8); MEAN CELL VOLUME 82.9 FL (80.0-100.0); MEAN CORPUSCULAR HEMOGLOBIN 27.4 PG (27.0-34.0); MEAN CORPUSCULAR HGB CONC 33.1 % (32.0-36.0); MONO % 9.8 % (0.0-8.0); MONOCYTE # 0.6 TH/MM3 (0-0.9); NEUT % 46.5 % (16.0-70.0); PLATELET COUNT 176 TH/MM3 (150-450); RED BLOOD COUNT 3.64 MIL/MM3 (4.00-5.30); RED CELL DISTRIBUTION WIDTH 13.8 % (11.6-17.2); WHITE BLOOD COUNT 6.5 TH/MM3 (4.0-11.0)
[2017-09-17 08:01] VITALS: BP 139/88; PULSE 72; RESP 17; TEMP 97.8; O2SAT 98
[2017-09-17 08:13] LABS: ALBUMIN 2.9 GM/DL (3.4-5.0); BICARBONATE 26.4 MEQ/L (21.0-32.0); BLOOD UREA NITROGEN 15 MG/DL (7-18); CALCIUM 8.9 MG/DL (8.5-10.1); CHLORIDE 103 MEQ/L (98-107); CREATININE 0.94 MG/DL (0.50-1.00); GLOMERULAR FILTRATION RATE 65 ML/MIN (>89); GLUCOSE,RANDOM 124 MG/DL (74-106); SODIUM (NA) 138 MEQ/L (136-145)
[2017-09-17 08:14] LABS: ALT (GPT) 34 U/L (10-53); AST (GOT) 24 U/L (15-37)
[2017-09-17 08:17] LABS: ALKALINE PHOSPHATASE 60 U/L (45-117); TOTAL BILIRUBIN ADULT 0.7 MG/DL (0.2-1.0); TOTAL PROTEIN 8.1 GM/DL (6.4-8.2)
--- NOTE | 2017-09-17 09:33 | HHI.DCPOC ---
Discharge Care Plan Diagnosis: (1) Mastitis (2) Breast pain, left Goals to Promote Your Health * To prevent worsening of your condition and complications * To maintain your health at the optimal level Directions to Meet Your Goals Take your medications as prescribed Follow your dietary instruction Follow activity as directed Keep your appointments as scheduled Take your immunizations and boosters as scheduled If your symptoms worsen call your PCP, if no PCP go to Urgent Care Center or Emergency Room Smoking is Dangerous to Your Health. Avoid second hand smoke Call the 24-hour hour crisis hotline for domestic abuse at Beni Aguilar MD R2 Sep 17, 2017 9:33 am
[2017-09-17] MEDS ORDERED: AMOX875T2 PO (09:35)
[2017-09-17] MEDS: SODIUM CHLORIDE 0.9% FLUSH 10 ML FLUSH IV FLUSH SCH (09:40)
[2017-09-17] MEDS: DOCUSATE SODIUM 50 MG/SENNA 8.6 MG TAB PO SCH (09:41)
--- NOTE | 2017-09-17 12:08 | HHI.FPPN ---
Subjective Remarks Patient seen, examined and discussed with the medicine team. This is a 42-year-old -[place] female who presented to emergency department when she suddenly noticed tenderness and swelling of the left breast , with the left breast being larger than the right. She had noted some asymmetry in the past and some swelling of her breasts when she menstruated, but this was different. She did not report a fever nor did she have any discharge from her breast. She does have a diagnosis of hepatitis C and is a regular cocaine user. Reports history of breast cancer in her grandmother. This morning, she reports that the redness and swelling is much improved as is the tenderness. She does have a doctor in [place] with whom to follow-up. Objective Vitals Vital Signs Date Time Temp Pulse Resp B/P (MAP) Pulse Ox O2 Delivery O2 Flow Rate FiO2 09/17/17 08:01 97.8 72 17 139/88 (105) 98 09/17/17 04:06 97.7 74 18 131/72 (91) 97 09/16/17 23:31 16 09/16/17 23:06 98.7 81 18 122/76 (91) 97 09/16/17 22:20 16 09/16/17 19:41 98.7 94 18 131/81 (98) 97 09/16/17 15:58 103 19 117/76 (90) 97 Room Air 09/16/17 12:22 94 20 I/O 09/16/17 09/16/17 09/16/17 09/17/17 09/17/17 09/17/17 07:00 15:00 23:00 07:00 15:00 23:00 # Voids 2 # Sanitary Pads 2 Pads Result Diagram: 09/17/17 0648 09/17/17 0648 Other Results Imaging Last Impressions Chest CT 09/16/17 1221 Signed Impressions: CONCLUSION: 1. Left sided breast swelling and presumed edema or inflammatory change within the soft tissues. Differential diagnosis includes mastitis. Cannot exclude inf lammatory breast carcinoma. If clinical findings are indeterminate would recomm end further evaluation with left breast MRI. Borderline and mildly enlarged lef t axillary lymph nodes. 2. No lung consolidation or effusion. Breast Ultrasound 09/16/17 0000 Signed Impressions: CONCLUSION: 1. No discrete solid or cystic mass identified sonographically. Based on chest CT findings patient should be followed with MRI as an outpatient. Objective Remarks O. CONSTITUTIONAL/GEN: normally nourished, in NAD. EYES: conjunctiva normal, PERRLA, EOMI. no scleral icterus ENT: Many missing teeth, poor oral hygiene. NECK: Supple BREAST: There is no visible erythema over the left lateral breast, and she does have 2 marble sized slightly tender nodules palpable. There is no fluctuance. LUNGS: clear A-P, respiratory effort is normal. CARDIOVASCULAR: RR without murmur or gallop. No significant edema. GI/ABD: soft without masses, without organomegaly. NEURO: No focal deficits. SKIN: color normal, no rashes noted. HEME/LYMPH: no bruising, petechia or significant adenopathy MUSC: back is normal in appearance. Extremities are normal in appearance. PSYCH/MENTAL STATUS: Alert and oriented x 3. A/P Assessment and Plan 42 y/o F w/no significant PMH admitted to obs for left breast pain. Differential : malignancy v mastitis v abscess. Will start Augmentin if no mass/abscess appreciated on exam. Patient will need to pursue careful follow-up with her primary care doctor. Discharge Planning Discharged today, follow-up with her primary care doctor. Attending Attestation Patient seen and examined. Case reviewed and discussed with the resident team. Agree with plan of care as discussed with me. Problem List: (1) Breast pain, left ICD Codes: N64.4 - Mastodynia Plan: Augmentin 875 mg Q12H for a course of 5-7 days as she demonstrated a rapid response. Tylenol PRN for pain. Avoid opiates due to drug abuse hx. Consider Motrin w/ close monitoring of LFTs. Will require outpatient follow up (2) Anemia ICD Codes: D64.9 - Anemia, unspecified Status: Chronic Plan: Normocytic AM CBC (3) FEN Plan: Fluids: PO Electrolytes: none Nutrition: Reg diet DVT prophy: not indicated Problem Qualifiers (1) Anemia: Qualified Codes: D64.9 - Anemia, unspecified Joanna Street MD Sep 17, 2017 12:08
== END 2017-09-17 10:42 | disposition home or self-care (01) ==
LOC: NEPE 11:19 → NEDA 15:49 → NEPHCDU 18:02
PROVIDERS: ADMIT Family Medicine; ATTEND Family Medicine
DX: N61.0 Mastitis without abscess (principal); N63.20 Unspecified lump in the left breast, unspecified quadrant; D64.9 Anemia, unspecified; I10 Essential (primary) hypertension; B19.20 Unspecified viral hepatitis C without hepatic coma; M54.9 Dorsalgia, unspecified; G89.29 Other chronic pain; F14.10 Cocaine abuse, uncomplicated
CPT/HCPCS: 71260; 76642; 80053; 85025; 85610; 85730; 96365; 96366; 96375; 96376; 99285; G0378; J0295; J2270; Q9967

== ENCOUNTER 2017-12-18 11:22 | Inpatient (IN) ==
--- NOTE | 2017-12-18 13:27 | ED ---
HPI General Chief Complaint: Psychiatric Symptoms Stated Complaint: Psych Eval Time Seen by Provider: 12/18/17 13:01 Source: patient Mode of arrival: ambulatory Limitations: no limitations History of Present Illness HPI Narrative: Patient is a 42-year-old female presenting to emerge from for evaluation of depression and suicidal ideations. Patient states her daughter 6 months ago from a heroin overdose. Since that time she has been using heroin in an attempt to join her daughter. Patient states she did 4 bags in 1 day and still lived. She also reports that she laid on train tracks in an attempt to end her life but the train stopped. Patient reports feeling as if she should obtain her trouble in order to take her daughter's remains up in order to be closer to her. Patient's daughter was 23 years old, she has a 26-year-old son who she states does not want to see here because she looks too much like his sister. Patient denies any tobacco use or alcohol use. She states that she has had issues with depression in the past but it has exacerbated since the of her daughter. MD complaint: suicidal ideation and feels depressed Onset (ago): month(s) (6) Duration: constant History of same: Yes Relieving factors: none Exacerbating factors: drug use Context: recent drug abuse and significant life stressor Associated psychiatric symptoms: depression, suicidal ideation and delusions Associated symptoms: denies other symptoms Treatments prior to arrival: none If self harm: admits thoughts of self harm Related Data Previous Rx's Medication Instructions Recorded lamivudine 150 mg PO BID #10 tab 10/28/17 lopinavir-ritonavir [Kaletra] 2 tab PO Q12H #20 tab 10/28/17 zidovudine 300 mg PO Q12H #30 cap 10/28/17 Allergies Allergy/AdvReac Type Severity Reaction Status Date / Time ketorolac Allergy Severe LIP Unverified 10/28/17 21:49 SWELLING tramadol Allergy Severe NAUSEA Unverified 10/28/17 21:49 pineapple Allergy Unknown Swelling Verified 10/28/17 21:49 of Lip/Tongue/Throat PEANUTBUTTER Allergy Severe Swelling Uncoded 10/28/17 21:49 of Lip/Tongue/Throat Review of Systems ROS: all other systems reviewed are negative PMFSH History History Provided By: Patient Medical History Medical History Depression (Chronic) Social History Social History Second Hand Smoke Exposure: Yes Smoking Status: Current every day smoker Tobacco Type: Cigarettes How Often Do You Have a Drink Containing Alcohol: Monthly or less Recent Travel in [facility] within the Last 8 Weeks: No Recent Out of Country Travel within the Last 8 Weeks: No Exam Narrative Exam Narrative: GENERAL: Well-developed, well-nourished, alert female. Presenting in no acute distress. SKIN: Focused skin assessment warm/dry. HEAD: Atraumatic. Normocephalic. EYES: Pupils equal and round. No scleral icterus. No injection or drainage. ENT: No nasal bleeding or discharge. Mucous membranes pink and moist. NECK: Trachea midline. No JVD. CARDIOVASCULAR: Regular rate and rhythm. No murmur appreciated. RESPIRATORY: No accessory muscle use. Clear to auscultation. Breath sounds equal bilaterally. GASTROINTESTINAL: Abdomen soft, non-tender, nondistended. Hepatic and splenic margins not palpable. MUSCULOSKELETAL: No obvious deformities. No clubbing. No cyanosis. No edema. NEUROLOGICAL: Awake and alert. No obvious cranial nerve deficits. Motor grossly within normal limits. Normal speech. PSYCHIATRIC: Depressed mood and affect; insight and judgment normal. Course Initial Documented Vital Signs Temperature 98 F 12/18/17 12:48 Pulse Rate 82 12/18/17 12:48 Respiratory Rate 16 12/18/17 12:48 Blood Pressure 120/77 12/18/17 12:48 Pulse Oximetry 100 12/18/17 12:48 Last Documented Vital Signs Temperature 98 F 12/18/17 12:48 Pulse Rate 82 12/18/17 12:48 Respiratory Rate 16 12/18/17 12:48 Blood Pressure 120/77 12/18/17 12:48 Pulse Oximetry 100 12/18/17 12:48 Medical Decision Making [facility] Narrative Medical decision making narrative: Patient is a well-appearing 42-year-old female presenting voluntarily for psychiatric evaluation. Mental health screening discussed with the patient. Psychiatric screen ordered. Patient's vital signs are stable. She is resting comfortably. Labs reviewed, patient is a mild anemia, this is consistent with prior results. Chemistries unremarkable. Patient is medically cleared for psychiatric evaluation at this time. Medical Screen Exam Complete: Yes Emergency Medical Condition: Yes Differential Diagnosis Differential Diagnosis: Mood disorder versus substance abuse versus psychosis versus metabolic abnormality versus other Medical Records Medical records reviewed: Yes I reviewed the patient's medical records. Lab Data Result diagrams: 12/18/17 13:40 12/18/17 13:40 Lab Results 12/18/17 12/18/17 Range/Units 13:40 13:40 WBC 7.0 (4.0-11.0) th/mm3 RBC 3.42 L (4.00-5.30) mil/mm3 Hgb 9.3 L (11.6-15.3) gm/dL Hct 27.4 L (35.0-46.0) % MCV 80.1 (80.0-100.0) fL MCH 27.2 (27.0-34.0) pg MCHC 33.9 (32.0-36.0) % RDW 15.7 (11.6-17.2) % Plt Count 223 (150-450) th/mm3 MPV 8.6 (7.0-11.0) fL Neut % (Auto) 50.3 (16.0-70.0) % Lymph % (Auto) 39.1 (9.0-44.0) % [place] % (Auto) 8.1 H (0.0-8.0) % Eos % (Auto) 1.9 (0.0-4.0) % Baso % (Auto) 0.6 (0.0-2.0) % Neut # (Auto) 3.5 (1.8-7.7) th/mm3 Lymph # (Auto) 2.7 (1.0-4.8) th/mm3 [place] # (Auto) 0.6 (0.0-0.9) th/mm3 Eos # (Auto) 0.1 (0.0-0.4) th/mm3 Baso # (Auto) 0.0 (0.0-0.2) th/mm3 WBC Differential . Differential Comment Auto diff final Sodium 138 (136-145) meq/L Potassium 3.6 (3.5-5.1) meq/L Chloride 102 (98-107) meq/L Carbon Dioxide 28.3 (21.0-32.0) meq/L Anion Gap 8 (5-15) meq/L BUN 10 (7-18) mg/dL Creatinine 0.94 (0.50-1.00) mg/dL Estimated GFR 65 L (>89) mL/min Random Glucose 112 H (74-106) mg/dL Calcium 8.2 L (8.5-10.1) mg/dL Total Bilirubin 0.5 (0.2-1.0) mg/dL AST 30 (15-37) U/L ALT 34 (10-53) U/L Alkaline Phosphatase 58 (45-117) U/L Total Protein 8.2 (6.4-8.2) g/dL Albumin 2.8 L (3.4-5.0) g/dL TSH 0.964 (0.358-3.740) uIU/mL Acetaminophen Less than 2.0 L (10.0-30.0) mcg/mL Serum Alcohol 3 (0-5) mg/dL Discharge Plan Discharge Disposition Patient Disposition: 30 Still Patient Discharge Condition Condition: Stable Discharge Details Diagnosis: Medical clearance for psychiatric admission Physicians Team ED Provider: Katelyn Pichardo ED Midlevel Provider: Adenike Parkinson Primary Care Provider: Primary Care LibiaiAnnelise Rxs /Orders / Referrals /Forms Prescriptions: No Action lamivudine 150 mg tablet 150 mg PO BID Qty: 10 RF: 0 zidovudine 100 mg capsule 300 mg PO Q12H Qty: 30 RF: 0 lopinavir-ritonavir [Kaletra] 200-50 mg tablet 2 tab PO Q12H Qty: 20 RF: 0 Discharge Interventions Interventions: Vital Signs Last Done: 12/18/17 12:48 Status ED Status: Medically Cleared
[2017-12-18 14:09] LABS: Baso % (Auto) 0.6 % (0.0-2.0); Eos % (Auto) 1.9 % (0.0-4.0); Hematocrit 27.4 % (35.0-46.0); Hemoglobin 9.3 gm/dL (11.6-15.3); Lymph # (Auto) 2.7 th/mm3 (1.0-4.8); Lymph % (Auto) 39.1 % (9.0-44.0); Mean Corpuscular HGB Conc 33.9 % (32.0-36.0); Mean Corpuscular Hemoglobin 27.2 pg (27.0-34.0); Mean Corpuscular Volume 80.1 fL (80.0-100.0); Mean Platelet Volume 8.6 fL (7.0-11.0); Mono # (Auto) 0.6 th/mm3 (0.0-0.9); Mono % (Auto) 8.1 % (0.0-8.0); Neut # (Auto) 3.5 th/mm3 (1.8-7.7); Neut % (Auto) 50.3 % (16.0-70.0); Platelet Count 223 th/mm3 (150-450); Red Blood Count 3.42 mil/mm3 (4.00-5.30); Red Cell Distribution Width 15.7 % (11.6-17.2)
[2017-12-18 14:10] LABS: Eos # (Auto) 0.1 th/mm3 (0.0-0.4)
[2017-12-18 14:36] LABS: Alanine Aminotransferase 34 U/L (10-53); Albumin 2.8 g/dL (3.4-5.0); Anion Gap 8 meq/L (5-15); Aspartate Aminotransferase 30 U/L (15-37); Blood Urea Nitrogen 10 mg/dL (7-18); Calcium 8.2 mg/dL (8.5-10.1); Carbon Dioxide 28.3 meq/L (21.0-32.0); Chloride 102 meq/L (98-107); Glomerular Filtration Rate 65 mL/min (>89); Glucose,Random 112 mg/dL (74-106); Potassium 3.6 meq/L (3.5-5.1); Sodium 138 meq/L (136-145)
[2017-12-18 14:40] LABS: Alcohol 3 mg/dL (0-5)
[2017-12-18 14:46] LABS: Alkaline Phosphatase 58 U/L (45-117); Thyroid Stimulating Hormone 0.964 uIU/mL (0.358-3.740); Total Protein 8.2 g/dL (6.4-8.2)
[2017-12-18 16:58] LABS: Bacteria,Urine Rare /hpf; Bilirubin,Urine Negative (Negative); Clarity,Urine Cloudy (Clear); Color,Urine Yellow (Yellw/Straw); Glucose,Urine (UA) Negative (Negative); Leukocyte Esterase,Urine Small (Negative); Mucus,Urine Many /lpf (Occasional); Nitrite,Urine Negative (Negative); Specific Gravity,Urine 1.024 (1.002-1.035); Squamous Epithelial Cell,Urine 24 /hpf (0-5); Urobilinogen,Urine 4 or Greater mg/dL (Less than 2)
[2017-12-18 17:01] LABS: Amphetamine Screen,Urine Neg (Neg); Barbiturate Screen,Urine Neg (Neg); Cannabinoid Screen,Urine Pos (Neg); Cocaine Screen,Urine Pos (Neg)
[2017-12-18 17:12] LABS: Opiate Screen,Urine Pos (Neg)
--- NOTE | 2017-12-19 10:32 | ED ---
HPI - Psych - General Source: patient Mode of arrival: ambulatory Limitations: no limitations - History of Present Illness Duration: constant Relieving factors: none Exacerbating factors: drug use Associated symptoms: denies other symptoms Treatments prior to arrival: none - General Chief Complaint: Psychiatric Symptoms Stated Complaint: Psych Eval Time Seen by Provider: 12/19/17 10:00 - History of Present Illness HPI Narrative: History of Present Illness HPI Narrative: Patient is a 42-year-old female with reported history of schizoaffective disorder presenting to emergency department for evaluation of depression and suicidal ideations. Patient states her daughter 6 months ago from a heroin overdose. Since that time she has been using heroin in an attempt to join her daughter. Patient states she did 4 bags in 1 day and still lived. She also reports that she laid on train tracks in an attempt to end her life but the train stopped. Patient's daughter was 23 years old, she has a 26-year-old son who she states does not want to see here because she looks too much like his sister. She states that she has had issues with depression in the past but it has exacerbated since the of her daughter.Patient reports that she sees people. Also reports that she wants to go to the cemetery to dig up her daughter's body and that she has been sleeping in the cemetery. Patient is seen. She is yelling that people are going to get hurt. Pushing the food cart forcefully towards staff. Orders for Zyprexa and benadryl for agitated behavior. (Fabienne Larson) - Related Data Home Medications Medication Instructions Recorded Confirmed clonazepam [Klonopin] 2 mg PO BID 12/18/17 12/18/17 Allergies Allergy/AdvReac Type Severity Reaction Status Date / Time ketorolac Allergy Severe LIP Verified 12/19/17 10:19 SWELLING tramadol Allergy Severe NAUSEA Verified 12/19/17 10:19 pineapple Allergy Unknown Swelling Verified 12/19/17 10:19 of Lip/Tongue/Throat PEANUTBUTTER Allergy Severe Swelling Uncoded 12/19/17 10:20 of Lip/Tongue/Throat PMFSH - History History Provided By: Patient - Medical History Medical History: Medical History (Last Updated 12/18/17 @ 19:40 by Willa Pritchard RN) Anxiety disorder Schizophrenia Depression - Tobacco History Second Hand Smoke Exposure: No Smoking Status: Never smoker Tobacco Type: Cigarettes - Alcohol History How Often Do You Have a Drink Containing Alcohol: Never - Substance Use History Substance History: Active Abuse - Substance Use Type Crack/Cocaine Status: Active Route Used: Inhalation Frequency: 2x/month Last Used: 4 days ago Reason for Use: Hurt Myself Heroin Status: Active Route Used: Intravenously Frequency: 2x/month Last Used: 4 days ago Reason for Use: Hurt Myself - Travel History Recent Travel in the [place] Within the Last 8 Weeks: No Recent Travel Out of the Country Within the Last 8 Weeks: No - Immunization History Tetanus Immunization: Unsure Hx Influenza Vaccine This Season: No Psychiatric History - Psychiatric History Psychiatric Treatment History: Denies Previous Treatment History of Inpatient Treatment: No Firearms in Home: No - Psychiatric History Unable to obtain from patient (Fabienne Larson) - Legal History Unable to obtain (Fabienne Larson) - Family Psychiatric History Unknown (Fabienne Larson) Physical Exam - General Limitations: no limitations Mental Status Examination Appearance: Disheveled, Malodorous Consciousness: Alert Orientation: x4 Motor Activity: Normal gait Speech: Unremarkable Language: Adequate Fund of Knowledge: Adequate Attention and Concentration: Inadequate Memory: Impaired Mood: Angry, Irritable Affect: Irritable, Labile Thought Process & Associations: Disorganized Thought Content: Bizarre thinking Hallucination Type: Visual (reports seeing people) Delusion Type: Bizarre Suicidal Ideation: Yes Suicidal Plan: No Suicidal Intention: No Homicidal Ideation: No Homicidal Plan: No Homicidal Intention: No Insight: Poor Judgment: Poor Initial Documented Vital Signs Temperature 98 F 12/18/17 12:48 Pulse Rate 82 12/18/17 12:48 Respiratory Rate 16 12/18/17 12:48 Blood Pressure 120/77 12/18/17 12:48 Pulse Oximetry 100 12/18/17 12:48 Last Documented Vital Signs Temperature 98.1 F 12/20/17 05:32 Pulse Rate 92 H 12/20/17 09:53 Respiratory Rate 16 12/20/17 05:32 Blood Pressure 118/91 H 12/20/17 09:53 Pulse Oximetry 97 12/20/17 05:32 MDM - Psych - Lab Data Result diagrams: 12/18/17 13:40 12/18/17 13:40 - [facility] Narrative Medical decision making narrative: Patient is agitated,internally preoccupied, reports visual hallucinations, suicidal ideation off psychiatric medications, recent substance abuse. Patient is placed under an involuntary status. Placed on SMA list for further treatment and safety. (Fabienne Larson) - Lab Data Lab Results 12/18/17 12/18/17 12/18/17 Range/Units 13:40 13:40 13:40 WBC 7.0 (4.0-11.0) th/mm3 RBC 3.42 L (4.00-5.30) mil/mm3 Hgb 9.3 L (11.6-15.3) gm/dL Hct 27.4 L (35.0-46.0) % MCV 80.1 (80.0-100.0) fL MCH 27.2 (27.0-34.0) pg MCHC 33.9 (32.0-36.0) % RDW 15.7 (11.6-17.2) % Plt Count 223 (150-450) th/mm3 MPV 8.6 (7.0-11.0) fL Neut % (Auto) 50.3 (16.0-70.0) % Lymph % (Auto) 39.1 (9.0-44.0) % [place] % (Auto) 8.1 H (0.0-8.0) % Eos % (Auto) 1.9 (0.0-4.0) % Baso % (Auto) 0.6 (0.0-2.0) % Neut # (Auto) 3.5 (1.8-7.7) th/mm3 Lymph # (Auto) 2.7 (1.0-4.8) th/mm3 [place] # (Auto) 0.6 (0.0-0.9) th/mm3 Eos # (Auto) 0.1 (0.0-0.4) th/mm3 Baso # (Auto) 0.0 (0.0-0.2) th/mm3 WBC Differential . Differential Comment Auto diff final Sodium 138 (136-145) meq/L Potassium 3.6 (3.5-5.1) meq/L Chloride 102 (98-107) meq/L Carbon Dioxide 28.3 (21.0-32.0) meq/L Anion Gap 8 (5-15) meq/L BUN 10 (7-18) mg/dL Creatinine 0.94 (0.50-1.00) mg/dL Estimated GFR 65 L (>89) mL/min Random Glucose 112 H (74-106) mg/dL Calcium 8.2 L (8.5-10.1) mg/dL Total Bilirubin 0.5 (0.2-1.0) mg/dL AST 30 (15-37) U/L ALT 34 (10-53) U/L Alkaline Phosphatase 58 (45-117) U/L Total Protein 8.2 (6.4-8.2) g/dL Albumin 2.8 L (3.4-5.0) g/dL TSH 0.964 (0.358-3.740) uIU/mL Urine Color (Yellw/Straw) Urine Clarity (Clear) Urine pH (5.0-8.5) Ur Specific [place] (1.002-1.035) Urine Protein (Neg-Trace) mg/dL Urine Glucose (UA) (Negative) mg/dL Urine Ketones (Negative) mg/dL Urine Occult Blood (Negative) Urine Nitrate (Negative) Urine Bilirubin (Negative) Urine Urobilinogen (Less than 2) mg/dL Ur Leukocyte Esterase (Negative) Urine RBC (0-3) /hpf Urine WBC (0-5) /hpf Ur Squamous Epith Cells (0-5) /hpf Urine Bacteria (None) /hpf Urine Mucus (Occasional) /lpf Urine Yeast (None) /hpf Micro UA Comment Ur Microscopic Review Urine Culture Comments Salicylates Less than 1.7 L (2.8-20.0) mg/dL Urine Opiates Screen (Neg) Acetaminophen Less than 2.0 L (10.0-30.0) mcg/mL Ur Barbiturates Screen (Neg) Ur Amphetamines Screen (Neg) U Benzodiazepines Scrn (Neg) Urine Cocaine Screen (Neg) U Cannabinoids Screen (Neg) Serum Alcohol 3 (0-5) mg/dL 12/18/17 12/18/17 Range/Units 16:20 16:20 WBC (4.0-11.0) th/mm3 RBC (4.00-5.30) mil/mm3 Hgb (11.6-15.3) gm/dL Hct (35.0-46.0) % MCV (80.0-100.0) fL MCH (27.0-34.0) pg MCHC (32.0-36.0) % RDW (11.6-17.2) % Plt Count (150-450) th/mm3 MPV (7.0-11.0) fL Neut % (Auto) (16.0-70.0) % Lymph % (Auto) (9.0-44.0) % [place] % (Auto) (0.0-8.0) % Eos % (Auto) (0.0-4.0) % Baso % (Auto) (0.0-2.0) % Neut # (Auto) (1.8-7.7) th/mm3 Lymph # (Auto) (1.0-4.8) th/mm3 [place] # (Auto) (0.0-0.9) th/mm3 Eos # (Auto) (0.0-0.4) th/mm3 Baso # (Auto) (0.0-0.2) th/mm3 WBC Differential Differential Comment Sodium (136-145) meq/L Potassium (3.5-5.1) meq/L Chloride (98-107) meq/L Carbon Dioxide (21.0-32.0) meq/L Anion Gap (5-15) meq/L BUN (7-18) mg/dL Creatinine (0.50-1.00) mg/dL Estimated GFR (>89) mL/min Random Glucose (74-106) mg/dL Calcium (8.5-10.1) mg/dL Total Bilirubin (0.2-1.0) mg/dL AST (15-37) U/L ALT (10-53) U/L Alkaline Phosphatase (45-117) U/L Total Protein (6.4-8.2) g/dL Albumin (3.4-5.0) g/dL TSH (0.358-3.740) uIU/mL Urine Color Yellow (Yellw/Straw) Urine Clarity Cloudy H (Clear) Urine pH 5.0 (5.0-8.5) Ur Specific [place] 1.024 (1.002-1.035) Urine Protein Negative (Neg-Trace) mg/dL Urine Glucose (UA) Negative (Negative) mg/dL Urine Ketones Negative (Negative) mg/dL Urine Occult Blood Small H (Negative) Urine Nitrate Negative (Negative) Urine Bilirubin Negative (Negative) Urine Urobilinogen 4 or greater (Less than 2) mg/dL Ur Leukocyte Esterase Small H (Negative) Urine RBC 6 H (0-3) /hpf Urine WBC 6 H (0-5) /hpf Ur Squamous Epith Cells 24 (0-5) /hpf Urine Bacteria Rare H (None) /hpf Urine Mucus Many H (Occasional) /lpf Urine Yeast Occasional H (None) /hpf Micro UA Comment Culture not ind Ur Microscopic Review Not Reportable Urine Culture Comments Culture not ind Salicylates (2.8-20.0) mg/dL Urine Opiates Screen Pos H (Neg) Acetaminophen (10.0-30.0) mcg/mL Ur Barbiturates Screen Neg (Neg) Ur Amphetamines Screen Neg (Neg) U Benzodiazepines Scrn Neg (Neg) Urine Cocaine Screen Pos H (Neg) U Cannabinoids Screen Pos H (Neg) Serum Alcohol (0-5) mg/dL
[2017-12-20] MEDS ORDERED: Acetaminophen 325 MG Tablet PO ONE (10:31)
[2017-12-20] MEDS ORDERED: Aluminum/Magnesium/Simethacone Susp 30 ML UDC PO PRN (15:30)
[2017-12-20] MEDS: Senna/Docusate Sodium 8.6/50 MG Tablet PO SCH (21:00)
[2017-12-20] MEDS ORDERED: LORazepam 1 MG Tablet PO ONE (21:45)
[2017-12-21] MEDS: Senna/Docusate Sodium 8.6/50 MG Tablet PO SCH ×2 (09:07→21:10)
[2017-12-21] MEDS ORDERED: Haloperidol Inj 5 MG/ML Ampul IM PRN (09:52)
[2017-12-21] MEDS: Ibuprofen 600 MG Tablet PO PRN ×2 (10:01→17:17)
[2017-12-21] MEDS: LORazepam 1 MG Tablet PO PRN ×2 (10:02→20:59)
[2017-12-21 10:19] LABS: Calcium 9.5 mg/dL (8.5-10.1); Carbon Dioxide 24.1 meq/L (21.0-32.0); Chol/HDL Ratio 3.89 Ratio; Free T4 (Free Thyroxine) 0.99 ng/dL (0.76-1.46); HDL Cholesterol 45.4 mg/dL (40.0-60.0); Potassium 4.2 meq/L (3.5-5.1)
[2017-12-21] MEDS: QUEtiapine 25 MG Tablet PO SCH ×2 (15:49→20:59)
[2017-12-21 17:15] LABS: Hemoglobin A1c 5.4 % (4.3-6.0)
--- NOTE | 2017-12-21 19:08 | P.HPPSY ---
Provisional Diagnosis Admission Date: December 20, 2017 15:29 [place] I.: Major depressive disorder, severe with psychotic features Competence Certification of Person's Competence To Provide Express and Informed Consent I have personally examined Steffany Elder, a person being served at [facility] on, December 21, 2017 1906. Express and informed consent means consent voluntarily given in writing, by a competent person, after sufficient explanation and disclosure of the subject matter involved to enable the person to make a knowing and willful decision without any element of force, fraud, deceit, duress, or other form of constraint or coercion. This person is 18 years of age or older, is not now known to be incompetent to consent to treatment with a guardian advocate, and does not have a health care surrogate or proxy currently making medical treatment decisions. I have found this person to be one of the following: [] Competent to provide express and informed consent, as defined above, for voluntary admission to this facility and is competent to provide express and informed consent for treatment. He/she has the consistent capacity to make well reasoned, willful, and knowing decisions concerning his or her medical or mental health treatment. The person fully and consistently understands the purpose of the admission for examination/placement and is fully capable of personally exercising all rights assured [place] [] Incompetent to provide express and informed consent to voluntary admission, and this is incompetent to provide express and informed consent to treatment. The person must be transferred to involuntary status and a petition for a guardian advocate filed with the Circuit Court. [xxx] Refusing to provide express and informed consent to voluntary admission but is competent to provide express and informed consent for treatment. The person must be discharged or transferred to involuntary status. Form shall be completed within 24 hours of a person's arrival at the receiving facility and filed in the clinical record of each person: 1. Admitted on a voluntary basis 2. Permitted to provide express and informed consent to his/her own treatment 3. Allowed to transfer from involuntary to voluntary status 4. Prior to permitting a person to consent to his or her own treatment after having been previously found incompetent to consent to treatment. 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 Patient had required ETO while in the ER due to current symptomatology. 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 Patient was found spitting group noted B, cooperative, noted to be paranoid, anxious during interview and tearful. Patient states that she had to say "that people" that they were appearing half that that she relates this to how she had seen her daughter. She mentions that her daughter had of an overdose 6 months ago and blames people around her daughter at the time of her . Patient states that she has been having command auditory hallucinations to go ending up her daughter from the grief and states that she had been [place] and having thoughts of wanting to join her daughter in the same manner which her daughter had , using heroin. She mentions having decreased sleep, energy concentration along with depressed mood. Patient states that she has been having difficulty coping with the loss of her daughter, and also has been involved in increase heroin use, losing her job recently and becoming homeless. Patient mentions having ruminations of these thoughts and feeling increasingly anxious. Currently she reports feeling anxious, depressed, continues suicidal ideations, continued perceptual disturbances. Family psychiatric history: Denies Past psychiatric history: Previous psychiatric diagnoses of depression, no prior psychiatric admissions, no previous suicide attempts of interest behavior. Patient on outpatient mental provider states having gone through [facility] years ago was prescribed Thorazine, clonazepam, Vistaril. Substance use history: Denies any alcohol use reports having started here when in June last use was prior to admission patient denies use of any other drugs. Past medical history: Hypertension Allergies: Tramadol Social history: , has 2 children, one who recently passed due to heroin overdose, has 1 son currently estranged from him after her daughter's . Patient reports being unemployed for the past 3 weeks after being fired from showing up to work, homeless for the past week. Patient has a legal history of recent good charges which she is scheduled to appear in court on 01/03/18. - Inpatient Certification I certify that the inpatient services were ordered in accordance with Medicare regulations governing the order. This includes certification that hospital inpatient services are reasonable and necessary and in the case of services not specified as inpatient-only under 42 CFR 419.22(n), that they are appropriately provided as inpatient services in accordance to with the 2-midnight benchmark under 43 CFR 412.3(e) I certify that inpatient psychiatric hospital services are medically necessary. Evaluation and treatment and/or diagnostic testing are expected to improve the patient's condition. The patient needs on a daily basis, active treatment furnished directly by or requiring the supervision of inpatient psychiatric facility personnel. Estimated Total Length of Stay (Days): 8 Plans for Post Hospital Care: Home Review of Systems All other systems reviewed negative except as stated in HPI [facility] - History History Provided By: Patient, Medical Record - Medical History Medical History: Medical History (Last Updated 12/18/17 @ 19:40 by Willa Pritchard RN) Anxiety disorder Schizophrenia Depression - Tobacco History Second Hand Smoke Exposure: No Smoking Status: Never smoker Tobacco Type: Cigarettes - Alcohol History How Often Do You Have a Drink Containing Alcohol: Never - Substance Use History Substance History: Active Abuse - Substance Use Type Crack/Cocaine Type: denies Status: Early Remission Route Used: Inhalation Frequency: denies Last Used: 4 days ago Reason for Use: Hurt Myself Comment: denies Heroin Status: Active Route Used: Intravenously Frequency: 5 months ago for the first time Last Used: 2 weeks ago not sure of amount Reason for Use: Hurt Myself Comment: Pt reports she plans on comitting suicide by overdose just like her daughter did 5 months ago. - Travel History Recent Travel in the [place] Within the Last 8 Weeks: No Recent Travel Out of the Country Within the Last 8 Weeks: No - Immunization History Tetanus Immunization: Unsure Hx Influenza Vaccine This Season: No Quality Measures - Psychiatric History Violence risk to others in the last 6 months: low Violence risk to self in the last 6 months: elevated - Substance Abuse History Drug or alcohol use in the past 12 months: see HPI - Patient Strengths Patient's strengths (minimum of 2): verbal and communicative Medications and Allergies Active Medications: Active Medications Al Hydrox/Mg Hydrox/Simethicone (Mag-Al Plus Susp Liq) 30 ml PO Q6H PRN PRN Reason: DYSPEPSIA Buspirone HCl (Buspar) 5 mg PO TID [facility] Last Admin: 12/21/17 17:17 Dose: 5 mg Diphenhydramine HCl (Benadryl) 50 mg PO HS [facility] Stop: 12/21/17 21:01 Flumazenil (Romazecon Inj) 0.2 mg IV.PUSH Q1M PRN PRN Reason: OVERSEDATION Haloperidol Lactate (Haldol Inj) 1 mg IM Q15M PRN PRN Reason: for severe agitation Ibuprofen (Motrin) 600 mg PO Q8HR PRN PRN Reason: PAIN 1-10 AND/OR FEVER >101F Last Admin: 12/21/17 17:17 Dose: 600 mg Lactulose (Lactulose Liq) 30 ml PO DAILY PRN PRN Reason: SEVERE CONSITIPATION Lorazepam (Ativan) 1 mg PO Q6H PRN PRN Reason: MODERATE TO SEVERE ANXIETY Last Admin: 12/21/17 10:02 Dose: 1 mg Lorazepam (Ativan) 1 mg PO Q4H PRN PRN Reason: for CIWA 8-10 Lorazepam (Ativan) 2 mg PO Q2H PRN PRN Reason: for CIWA 11-14 Lorazepam (Ativan Inj) 2 mg IM Q2H PRN PRN Reason: for CIWA 11-14 Lorazepam (Ativan Inj) 2 mg IM Q1H PRN PRN Reason: for CIWA 15-20 Lorazepam (Ativan Inj) 2 mg IM Q15M PRN PRN Reason: for CIWA > 20 Lorazepam (Ativan Inj) 1 mg IM Q4H PRN PRN Reason: for CIWA 8-10 Miscellaneous (Pill Splitter) 1 each OTHER UNSCH [facility] Quetiapine Fumarate (Seroquel) 50 mg PO BID [facility] Stop: 12/21/17 22:00 Last Admin: 12/21/17 15:49 Dose: 50 mg Quetiapine Fumarate (Seroquel) 100 mg PO BID [facility] Stop: 12/22/17 22:00 Quetiapine Fumarate (Seroquel) 150 mg PO BID [facility] Stop: 12/23/17 22:00 Quetiapine Fumarate (Seroquel) 200 mg PO BID [facility] Senna/Docusate Sodium (Vonnie-Colace) 1 tab PO BID [facility] Last Admin: 12/21/17 09:07 Dose: Not Given Allergies Allergy/AdvReac Type Severity Reaction Status Date / Time ketorolac Allergy Severe LIP Verified 12/19/17 10:19 SWELLING tramadol Allergy Severe NAUSEA Verified 12/19/17 10:19 pineapple Allergy Unknown Swelling Verified 12/19/17 10:19 of Lip/Tongue/Throat PEANUTBUTTER Allergy Severe Swelling Uncoded 12/19/17 10:20 of Lip/Tongue/Throat Home Medications Medication Instructions Recorded Confirmed Type clonazepam [Klonopin] 2 mg PO BID 12/18/17 12/18/17 History Results - Labs CBC & Chem 7: 12/18/17 13:40 12/21/17 09:23 Labs: Laboratory Results - last 24 hr 12/21/17 12/21/17 09:23 15:04 Sodium 138 Potassium 4.2 Chloride 104 Carbon Dioxide 24.1 Anion Gap 10 BUN 16 Creatinine 0.98 Estimated GFR 62 L Random Glucose 114 H Hemoglobin A1c 5.4 Calcium 9.5 Triglycerides 129 Cholesterol 177 LDL Cholesterol, Calc 106 H HDL Cholesterol 45.4 Cholesterol/HDL Ratio 3.89 Free T4 0.99 Exam Vital signs: Vital Signs 12/20/17 21:15 12/21/17 06:07 12/21/17 17:38 Temperature 97.9 F 98.2 F Pulse Rate 99 H 95 H 113 H Respiratory Rate 20 17 17 Blood Pressure 168/102 H 136/88 114/74 Pulse Oximetry 97 97 99 - Constitutional no acute distress, cooperative Mental Status Examination Appearance: Disheveled Consciousness: Alert Orientation: x4 Motor Activity: Normal gait Speech: Unremarkable Language: Adequate Fund of Knowledge: Adequate Attention and Concentration: Inadequate Memory: Impaired Mood: Sad, Anxious Affect: Labile, Anxious Thought Process & Associations: Tangential Thought Content: Bizarre thinking, Preoccupations, Delusional Hallucination Type: Auditory, Visual (reports seeing people) Delusion Type: Bizarre Suicidal Ideation: Yes Suicidal Plan: No Suicidal Intention: No Homicidal Ideation: No Homicidal Plan: No Homicidal Intention: No Insight: Poor Judgment: Poor Assessment and Plan - Assessment (1) Major depressive disorder Code(s): F32.9 - Major depressive disorder, single episode, unspecified Status : Acute - Plan Plan: Estimated LOS: [] days Patient is a 42-year-old woman who carries a diagnosis of depression, no prior psychiatric admissions, previous suicide attempts, recent loss of her daughter via heroin overdose which patient this time is processing her loss with likely complicated bereavement which patient with worsening depressive symptoms along with psychotic symptoms which patient requires inpatient stabilization for safety. Petition for involuntary hospital she started, patient has capacity to consent for treatment. We will start quetiapine 50 mg p.o. twice daily with upper titration for mood stabilization, and psychosis. We will start buspirone 5 mg p.o. 3 times daily for anxiety. We will continue to monitor mood and behavior. Discharge planning a progress. Justification for Continued Inpatient Stay: At risk of further decompensation a lower level care. (1) Major depressive disorder Qualifiers: Major depression recurrence: unspecified whether recurrent Active/Remission status: currently active Major depression episode severity: severe Psychotic features: with psychotic features Qualified Code(s): F32.3 - Major depressive disorder, single episode, severe with psychotic features
[2017-12-22] MEDS: QUEtiapine 100 MG Tablet PO SCH ×2 (09:26→21:45)
[2017-12-22] MEDS: Ibuprofen 600 MG Tablet PO PRN (09:26)
[2017-12-22] MEDS: LORazepam 1 MG Tablet PO PRN ×3 (10:20→21:46)
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
[2017-12-22] MEDS: Senna/Docusate Sodium 8.6/50 MG Tablet PO SCH ×2 (12:59→23:58)
--- NOTE | 2017-12-22 14:59 | P.PNPSY ---
Subjective Remarks: This is a request for second opinion. Admission note was reviewed and I agree with the history. Patient was seen and case was discussed with nursing. Patient is irritable and oppositional during the interview. She minimizes her behavior and history during this interview. She is perseverative on her neck pain. She does admit to suicidal ideation before admission Mental Status Examination Appearance: Disheveled Consciousness: Alert Orientation: x4 Motor Activity: Normal gait Speech: Unremarkable Language: Adequate Fund of Knowledge: Adequate Attention and Concentration: Inadequate Memory: Impaired Mood: Sad, Anxious Affect: Labile, Anxious Thought Process & Associations: Tangential Thought Content: Bizarre thinking, Preoccupations, Delusional Hallucination Type: Auditory, Visual (reports seeing people) Delusion Type: Bizarre Suicidal Ideation: Yes (Fleeting today) Suicidal Plan: No Suicidal Intention: No Homicidal Ideation: No Homicidal Plan: No Homicidal Intention: No Insight: Poor Judgment: Poor Assessment and Plan - Assessment (1) Major depressive disorder Code(s): F32.9 - Major depressive disorder, single episode, unspecified Status : Acute - Plan Plan: I agree with the first opinion to continue petition. Criteria include suicidal ideation Justification for Continued Inpatient Stay: Patient would decompensate in a less restrictive setting (1) Major depressive disorder Qualifiers: Major depression recurrence: unspecified whether recurrent Active/Remission status: currently active Major depression episode severity: severe Psychotic features: with psychotic features Qualified Code(s): F32.3 - Major depressive disorder, single episode, severe with psychotic features
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
[2017-12-22] MEDS ORDERED: MethylPREDNISolone Sod Succinate Inj 125 MG/2 ML Vial IM ONE (17:00)
--- NOTE | 2017-12-22 22:25 | ECG ---
Date Performed: 12/21/2017 Time Performed: 10:30:50 PTAGE: 42 years EKG: Sinus rhythm WITH SINUS ARRHYTHMIA POSSIBLE LEFT ATRIAL ENLARGEMENT BORDERLINE ECG PREVIOUS TRACING : 12/22/2015 19.51 DOCTOR: Carolin Gutierrez Interpretating Date/Time 12/22/2017 22:15:29
[2017-12-23] MEDS: LORazepam 1 MG Tablet PO PRN ×4 (03:30→21:30)
[2017-12-23] MEDS: QUEtiapine 100 MG Tablet PO SCH ×2 (08:21→22:42)
--- NOTE | 2017-12-23 12:09 | P.PNPSY ---
Subjective Chief Complaint: Major Depression Remarks: Reviewed electronic medical records and discussed case with staff. Follow-up was conducted in the hallway with ONEAL Paulino. Patient states that she is feeling better since she started taking the seroquel. She is grieving the of her daughter and feels that she needs to work through her loss. She is preoccupied on her discharge. States that she can work at [employer] and they have work for her. 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 She does not feel that she needs to be in the hospital. She had an outburst at another female patient yesterday and today is remorseful regarding her behavior. She is showering and eating well. Denies AVH. Denies SI/HI. Review of Systems All other systems reviewed negative except as stated in HPI Mental Status Examination Appearance: Appropriate Consciousness: Alert Orientation: x4 Motor Activity: Normal gait Speech: Unremarkable Language: Adequate Fund of Knowledge: Adequate Attention and Concentration: Easily distracted Memory: Impaired Mood: Sad, Anxious Affect: Sad, Anxious Thought Process & Associations: Intact Thought Content: Appropriate, Preoccupations (with discharge) Suicidal Ideation: No Suicidal Plan: No Suicidal Intention: No Homicidal Ideation: No Homicidal Plan: No Homicidal Intention: No Insight: Fair Judgment: Impulsive Assessment and Plan - Plan Plan: Patient stable . Continue care as planned. Will see the psychiatrist on Sunday. Justification for Continued Inpatient Stay: Moving patient to a less restrictive environment may result in her decompensation.
[2017-12-23] MEDS: Senna/Docusate Sodium 8.6/50 MG Tablet PO SCH ×2 (12:51→20:30)
--- NOTE | 2017-12-23 16:16 | P.PN ---
Subjective Interval history: Follow-up visit cervicalgia, sciatica pain. Patient seen and examined today. Continues to report cervicalgia and sciatic nerve. States that pain goes all the way down to her foot, concerned about diabetic neuropathy. Discussed with patient she is not diabetic and that the pain she is experiencing is possibly from sciatic nerve pain. Appears to be pain seeking concentrate on asking for increased pain medication. Denies SOB/ dyspnea. Denies chest pain, palpitations , headaches, dizziness. Denies fevers, chills, n/v/d. Denies dysuria. Physical Exam Vital signs: Vital Signs 12/22/17 18:00 12/23/17 06:11 Temperature 98.1 F 98.1 F Pulse Rate 122 H 101 H Respiratory Rate 20 18 Blood Pressure 130/81 137/77 Pulse Oximetry 100 99 Narrative: GENERAL: This is a well-nourished, well-developed patient, in no apparent distress. SKIN: Warm and dry. HEENT: Normocephalic. Pupils equal round and reactive. Nose without bleeding. Airway patent. NECK: Trachea midline. Limited R OM, tenderness CARDIOVASCULAR: Regular rate and rhythm without murmurs, gallops, or rubs. RESPIRATORY: Clear to auscultation. Breath sounds equal bilaterally. No wheezes , rales, or rhonchi. GASTROINTESTINAL: Abdomen soft, non-tender, nondistended. Bowel Sounds normoactive x4. MUSCULOSKELETAL: Extremities without clubbing, cyanosis, or edema. NEUROLOGICAL: Awake and alert. No focal neuro deficit. Moves all extremities. Normal speech. Results - Labs CBC & Chem 7: 12/18/17 13:40 12/21/17 09:23 Assessment and Plan - Plan 42-year-old female who is admitted to [facility] for treatment of schizophrenia and depression. Schizophrenia/depression -Management per psychiatric attending Cervicalgia Sciatica -Patient has chronic neck pain that flares up from time to time, currently flared up -Single dose of Solu-Medrol 80 mg IM, given -Continues to have pain -Physical therapy for exercises. Baclofen 3 times daily 5 days this has been extensively discussed with patient. -Patient appears to be pain seeking. [email or web address] Prescription Drug Monitoring Database has been queried and verified. Patient was on methadone with last dose given in 2016. Will hold off on narcotic medications for now. -Continue with ibuprofen use -Provided with education for stretching exercises for sciatica. DVT prop ambulatory Code Status: Full code Discussed Condition With: Patient, nurse Discharge Planning: DC disposition by primary team
[2017-12-23] MEDS: Baclofen 10 MG Tablet PO SCH (22:45)
[2017-12-24] MEDS: Senna/Docusate Sodium 8.6/50 MG Tablet PO SCH ×2 (08:27→20:49)
[2017-12-24] MEDS: LORazepam 1 MG Tablet PO PRN ×2 (11:41→17:58)
[2017-12-24] MEDS: Baclofen 10 MG Tablet PO SCH ×2 (13:26→21:23)
[2017-12-24] MEDS ORDERED: Zolpidem Tartrate 5 MG Tablet PO PRN (14:54)
--- NOTE | 2017-12-24 15:14 | P.PN ---
Subjective Interval history: Follow-up visit cervicalgia, sciatica pain. Patient seen and examined today. Patient was seen walking in the hallway. Ask for the patient to be seen states that she will drop a cup of water that she had. Patient walk without any difficulty noted towards the day room area and back outside of her bedroom. Upon introduction, patient found out that she is being followed for the cervicalgia and sciatica pain she starts complaining of pain saying unable to walk. As per nursing, she was seen by physical therapist today for stretching exercises and she attempted to consciously buckle her knees. As per other staff members in the unit, patient has no difficulty with walking that they have noted or that she complained about with them. Appears to be still pain seeking, attempting to ask for other medications including gabapentin. Reiterated to patient that she does not have any diabetic neuropathy because she is not diabetic. Complaints of not sleeping at night. Discuss with patient that she needs to speak with her psychiatrist about it. Denies SOB/ dyspnea. Denies chest pain, palpitations, headaches, dizziness. Denies fevers, chills, n/v/d. Denies dysuria. Physical Exam Vital signs: Vital Signs 12/23/17 18:48 12/24/17 06:17 Temperature 98.3 F 98.7 F Pulse Rate 120 H 68 Respiratory Rate 18 17 Blood Pressure 118/76 135/79 Pulse Oximetry 98 98 Narrative: GENERAL: This is a well-nourished, well-developed patient, in no apparent distress. SKIN: Warm and dry. HEENT: Normocephalic. Pupils equal round and reactive. Nose without bleeding. Airway patent. NECK: Trachea midline. Limited R OM, tenderness CARDIOVASCULAR: Regular rate and rhythm without murmurs, gallops, or rubs. RESPIRATORY: Clear to auscultation. Breath sounds equal bilaterally. No wheezes , rales, or rhonchi. GASTROINTESTINAL: Abdomen soft, non-tender, nondistended. Bowel Sounds normoactive x4. MUSCULOSKELETAL: Extremities without clubbing, cyanosis, or edema. NEUROLOGICAL: Awake and alert. No focal neuro deficit. Moves all extremities. Seen ambulating in the hallway without difficulty. Normal speech. Results - Labs CBC & Chem 7: 12/18/17 13:40 12/21/17 09:23 Assessment and Plan - Plan 42-year-old female who is admitted to [facility] unit for treatment of schizophrenia and depression. Schizophrenia/depression -Management per psychiatric attending Cervicalgia Sciatica -Patient has chronic neck pain that flares up from time to time -Single dose of Solu-Medrol 80 mg IM, given -Continues to have pain -Physical therapy for exercises. Baclofen 3 times daily 5 days this has been extensively discussed with patient. -Patient appears to be pain seeking. [employer] Prescription Drug Monitoring Database has been queried and verified. Patient was on methadone with last dose given in 2016. No narcotic medications. -Continue with ibuprofen use. -Provided with education for stretching exercises for sciatica. -Ambulating at home without difficulty. Moves all extremities. Able to turn her neck when called by other residents. Patient is malingering, somatic as when she was asked regarding her pain, patient all of a sudden does not want to walk or move around stating she is in pain. -She can continue baclofen until DC but will not provide any prescription meds for the patient. DVT prop ambulatory Stable from Hospitalist standpoint. We will sign off. Reconsult as needed. Thank you. Medically stable for DC Discharge Planning: DC disposition by primary team
--- NOTE | 2017-12-24 18:53 | P.PNPSY ---
Subjective Chief Complaint: Major Depression Remarks: Patient seen for follow up; chart reviewed. Discussion with nursing staff reported that patient with no behavioral issues, focused on pain meds. Patient states that the weekend went "fine", slept ok, good appetite and energy. She denies any perceptual disturbances, suicidal or homicidal ideation. She states planning on going to her friend's home and go to work at the [employer]. Review of Systems All other systems reviewed negative except as stated in HPI Mental Status Examination Appearance: Appropriate Consciousness: Alert Orientation: x4 Motor Activity: Normal gait Speech: Unremarkable Language: Adequate Fund of Knowledge: Adequate Attention and Concentration: Adequate Memory: Impaired Mood: Appropriate Affect: Euthymic Thought Process & Associations: Intact Thought Content: Appropriate Hallucination Type: None Delusion Type: None, Bizarre Suicidal Ideation: No Suicidal Plan: No Suicidal Intention: No Homicidal Ideation: No Homicidal Plan: No Homicidal Intention: No Insight: Fair Judgment: Impulsive Assessment and Plan - Assessment (1) Major depressive disorder Code(s): F32.9 - Major depressive disorder, single episode, unspecified Status : Acute - Plan Plan: Patient with improvement in mood, no longer endorsing any psychotic symptoms, has maintained improved mood. Patient likely for discharge tomorrow to friend' s residence. Continue current treatment, continue to monitor mood and behavior. Discharge planning in progress. Justification for Continued Inpatient Stay: At risk for further decompensation at lower level of care. (1) Major depressive disorder Qualifiers: Major depression recurrence: unspecified whether recurrent Active/Remission status: currently active Major depression episode severity: severe Psychotic features: with psychotic features Qualified Code(s): F32.3 - Major depressive disorder, single episode, severe with psychotic features
[2017-12-25 05:17] VITALS: BP 105/78; PULSE 98; RESP 16; TEMP 98.2; O2SAT 99
[2017-12-25] MEDS: Baclofen 10 MG Tablet PO SCH ×2 (05:42→13:36)
[2017-12-25] MEDS: Senna/Docusate Sodium 8.6/50 MG Tablet PO SCH ×2 (08:40→08:44)
[2017-12-25] MEDS: LORazepam 1 MG Tablet PO PRN ×2 (08:40→14:09)
--- NOTE | 2017-12-25 23:19 | P.DSPSY ---
Psychiatry Discharge Summary Inpatient Psychiatric care?: Yes Advance Directives: No Mental Health Advance Directive: No Health Care Proxy: No - Admission Admission Date: December 20, 2017 15:29 - Admission Diagnosis (1) Major depressive disorder Code(s): F32.9 - Major depressive disorder, single episode, unspecified (2) Opiate abuse, continuous Code(s): F11.10 - Opioid abuse, uncomplicated Brief History: Patient is a 42-year-old woman, , 2 children, unemployed, homeless, with a past psychiatric history of depression, denies any previous psychiatric admissions, suicide attempt or self-injurious behavior, with a substance use history significant for heroin use which patient was presented voluntarily to the ED for worsening depression and suicidal ideations in the context of her daughter having 6 months ago (overdose along with having lost 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 Patient had required ETO while in the ER due to current symptomatology. 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 Patient was found spitting group noted B, cooperative, noted to be paranoid, anxious during interview and tearful. Patient states that she had to say "that people" that they were appearing half that that she relates this to how she had seen her daughter. She mentions that her daughter had of an overdose 6 months ago and blames people around her daughter at the time of her . Patient states that she has been having command auditory hallucinations to go ending up her daughter from the grief and states that she had been [place] and having thoughts of wanting to join her daughter in the same manner which her daughter had , using heroin. She mentions having decreased sleep, energy concentration along with depressed mood. Patient states that she has been having difficulty coping with the loss of her daughter, and also has been involved in increase heroin use, losing her job recently and becoming homeless. Patient mentions having ruminations of these thoughts and feeling increasingly anxious. Currently she reports feeling anxious, depressed, continues suicidal ideations, continued perceptual disturbances. Family psychiatric history: Denies Past psychiatric history: Previous psychiatric diagnoses of depression, no prior psychiatric admissions, no previous suicide attempts of interest behavior. Patient on outpatient mental provider states having gone through [facility] years ago was prescribed Thorazine, clonazepam, Vistaril. Substance use history: Denies any alcohol use reports having started here when in June last use was prior to admission patient denies use of any other drugs. Past medical history: Hypertension Allergies: Tramadol Social history: , has 2 children, one who recently passed due to heroin overdose, has 1 son currently estranged from him after her daughter's . Patient reports being unemployed for the past 3 weeks after being fired from showing up to work, homeless for the past week. Patient has a legal history of recent good charges which she is scheduled to appear in court on 01/03/18. Tobacco Use In Past 30 Days: Yes How Often Do You Have a Drink Containing Alcohol: Never Hospital Course: Patient is a 42-year-old woman, , 2 children, unemployed, homeless, with a past psychiatric history of depression, denies any previous psychiatric admissions, suicide attempt or self-injurious behavior, with a substance use history significant for heroin use which patient was presented voluntarily to the ED for worsening depression and suicidal ideations in the context of her daughter having 6 months ago (overdose along with having lost 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 Patient was started on medications and titrated accordingly which she tolerated well with no notable adverse drug reactions. She was observed by staff not to have had any behavioral disturbances, cessation of suicidal ideation and denied any homicidal ideations. Patient was able to reach and maintain stable mood during admission and with adjustment of medication was noted to be more was more hopeful and future oriented; was noted to participate with staff adequately. Patient was noted to participate in self-care, engaged with staff and maintaining adequate hygiene. Patient reported feeling hopeful, future oriented and motivated to maintain adherence to treatment and re-engage in work. Patient planned to be discharged to friend's home with support and to continue outpatient follow-up. Treatment team was able to set up outpatient follow-up appointments which patient can continue for continuity of care. Upon discharge patient stated feeling "good" reported feeling well with treatment, agreed to continue treatment. Patient from a mental health perspective no longer met criteria for continued inpatient level of care. Patient denied any SI , HI, perceptual disturbances or delusions. Weighing the acute, chronic, and protective factors and based on the available evidence, I space control supervisor to a reasonable degree of medical certainty that the patient is at low imminent risk of harm to self or others for mental illness as defined under the [place] act and her level of function is adequate as observed on the unit for planned level of outpatient care. Patient was counseled regarding warning signs for need to return to the psychiatric emergency room as part of the general safety plan. Patient advised to call 911 or go to nearest ED in case of emergency. Patient agrees with plan. - Discharge Discharge Date: 12/25/17 - Discharge Diagnosis (1) Major depressive disorder Code(s): F32.9 - Major depressive disorder, single episode, unspecified Status : Acute (2) Opiate abuse, continuous Code(s): F11.10 - Opioid abuse, uncomplicated Status: Acute Discharge Disposition: Home - Discharge Instructions Discharge Diet: Heart Healthy Diet Activities You Can Perform: Regular- No Restrictions - Discharge Time > 30 minutes Mental Status Examination Appearance: Appropriate Consciousness: Alert Orientation: x4 Motor Activity: Normal gait Speech: Unremarkable Language: Adequate Fund of Knowledge: Adequate Attention and Concentration: Adequate Memory: Impaired Mood: Appropriate Affect: Appropriate Thought Process & Associations: Intact, Linear Thought Content: Appropriate Hallucination Type: None Delusion Type: None Suicidal Ideation: No Suicidal Plan: No Suicidal Intention: No Homicidal Ideation: No Homicidal Plan: No Homicidal Intention: No Insight: Fair Judgment: Impulsive Discharge/Advance Care Plan - Results Vital Signs: Last Vital Signs Temp 98.2 F 12/25/17 05:15 Pulse 98 H 12/25/17 05:15 Resp 16 12/25/17 05:15 BP 105/78 12/25/17 05:15 Pulse Ox 99 12/25/17 05:15 Lab Results: Laboratory Results Hemoglobin A1c 5.4 % (4.3-6.0) 12/21/17 15:04 Triglycerides 129 mg/dL (42-150) 12/21/17 09:23 Cholesterol 177 mg/dL (120-200) 12/21/17 09:23 LDL Cholesterol, Calc 106 mg/dL (0-99) H 12/21/17 09:23 HDL Cholesterol 45.4 mg/dL (40.0-60.0) 12/21/17 09:23 TSH 0.964 uIU/mL (0.358-3.740) 12/18/17 13:40 Free T4 0.99 ng/dL (0.76-1.46) 12/21/17 09:23 Urine Culture Comments Culture not ind 12/18/17 16:20 Summary of Procedures: none Pending Results: None - Medications Number of antipsychotic medications at discharge: 1 - Discharge Care Plan Goals to Promote Your Health: * To prevent worsening of your condition and complications * To maintain your health at the optimal level Directions to Meet Your Goals: Take your medications as prescribed Follow your dietary instruction Follow activity as directed Keep your appointments as scheduled Take your immunizations and boosters as scheduled If your symptoms worsen call your PCP, if no PCP go to Urgent Care Center or Emergency Room For 30/10 questions related to your inpatient stay or results of tests pending at discharge, please contact Dr. Joey Edge MD at Smoking is Dangerous to Your Health. Avoid second hand smoking (1) Major depressive disorder Qualifiers: Major depression recurrence: unspecified whether recurrent Active/Remission status: currently active Major depression episode severity: severe Psychotic features: with psychotic features Qualified Code(s): F32.3 - Major depressive disorder, single episode, severe with psychotic features (1) Major depressive disorder Qualifiers: Major depression recurrence: unspecified whether recurrent Active/Remission status: currently active Major depression episode severity: severe Psychotic features: with psychotic features Qualified Code(s): F32.3 - Major depressive disorder, single episode, severe with psychotic features
== END 2017-12-25 14:30 | disposition home or self-care (01) ==
LOC: NEPJ 11:22 → NEDA 12-20 15:29 → H270 12-20 17:21
PROVIDERS: ADMIT Student in an Organized Health Care Education/Training Program; ATTEND Student in an Organized Health Care Education/Training Program